=== PATIENT | male | born 1985 | race Caucasian/White ===

== ENCOUNTER → 2019-07-30 10:45 | Outpatient (CLI) | payer OTHER, SELFPAY ==
--- NOTE | 2019-07-30 11:01 | XR_ITS ---
PROCEDURE: XR SHOULDER RT MIN 2V CLINICAL INDICATION: ROTATOR CUFF SYNDROME Right shoulder pain COMPARISON: No exams were available for comparison FINDINGS: No fracture or dislocation. No lytic or blastic change. There is mild subacromial. No significant degenerative change. IMPRESSION: Mild subacromial stenosis which may result in rotator issues which may be better evaluated with MRI if clinically warranted. Dictated by: David Kirk MD 07/30/2019 11:28 Electronically signed by David Kirk MD in [place] 07/30/2019 11:28
== END ==
PROVIDERS: PCP Family Medicine; Visit Provider Family Medicine
DX: M25.511 Pain in right shoulder (principal)
CPT/HCPCS: 73030

== ENCOUNTER → 2019-08-08 09:26 | Outpatient (CLI) | payer BC, OTHER, SELFPAY ==
--- NOTE | 2019-08-08 09:33 | XR_ITS ---
PROCEDURE: XR SHOULDER LT MIN 2V CLINICAL INDICATION: LT SHOULDER PAIN COMPARISON: No exams were available for comparison FINDINGS: The clavicle is intact and the AC joint appears normal. There is a slightly lateral downsloping acromion process. The humeral head rides slightly high in the glenoid and the combination suggests a possible predisposition to impingement syndrome. There are no soft tissue calcifications. IMPRESSION: Possible mild impingement syndrome, no other abnormality noted Dictated by: Dr. Azam Pierre MD 08/08/2019 09:[address] Azam Pierre MD in [place] 08/08/2019 09:56
== END ==
PROVIDERS: PCP Family Medicine; Visit Provider Family Medicine
DX: M25.512 Pain in left shoulder (principal)
CPT/HCPCS: 73030

== ENCOUNTER → 2019-09-12 15:26 | Outpatient (CLI) | payer OTHER, SELFPAY ==
[2019-09-12 18:52] LABS: Chol/HDL Ratio 3.2 (1-3.5); Cholesterol 132 mg/dl (140-200); HDL Cholesterol 41 mg/dl (40-60); Triglycerides 159 mg/dl (30-150); VLDL Cholesterol 32 mg/dL (0-40)
[2019-09-12 19:02] LABS: Direct LDL Cholesterol 61.94 mg/dL (100-129); Valproic Acid, (Depakene) 33.3 ug/ml (50-100)
[2019-09-12 19:23] LABS: Thyroid Stimulating Hormone 1.66 uIU/mL (0.465-4.68)
== END ==
PROVIDERS: Visit Provider Psychiatry & Neurology Psychiatry
DX: F31.81 Bipolar II disorder (principal)
CPT/HCPCS: 36415; 80061; 80164; 83036; 84443

== ENCOUNTER 2019-10-10 11:00 | Outpatient (RCR) | payer OTHER, SELFPAY | END 2019-10-10 12:00 | disposition home or self-care (01) | LOC: OT 11:00 | PROVIDERS: PCP Family Medicine; Visit Provider Family Medicine | DX: M75.101 Unspecified rotator cuff tear or rupture of right shoulder, not specified as traumatic; M75.21 Bicipital tendinitis, right shoulder | CPT/HCPCS: 97014; 97033; 97035; 97110; 97164; 97165; 97530; G0283 ==

== ENCOUNTER → 2019-12-03 11:17 | Outpatient (CLI) | payer OTHER, SELFPAY ==
--- NOTE | 2019-12-03 | XR_ITS ---
PROCEDURE: XR ORBIT BILATERAL MIN 4V CLINICAL INDICATION: Evaluate for foreign body COMPARISON: No exams were available for comparison TECHNIQUE: AP views are obtained of the orbits with the patient looking up and down. FINDINGS: No radio opaque foreign bodies evident. There is mild mucosal thickening of the left maxillary sinus IMPRESSION: There is mild mucosal thickening of the left maxillary sinus. No radio opaque orbital foreign body identified. Dictated by: David Kirk MD 12/03/2019 13:59 David Kirk MD in [place] 12/03/2019 13:59
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
== END ==
PROVIDERS: PCP Family Medicine; Visit Provider Orthopaedic Surgery
DX: M75.41 Impingement syndrome of right shoulder (principal); H05.53 Retained (old) foreign body following penetrating wound of bilateral orbits
CPT/HCPCS: 70200; 73221

== ENCOUNTER 2020-01-09 10:25 | Outpatient (RCR) | payer OTHER, SELFPAY | END 2020-01-09 11:00 | disposition home or self-care (01) | LOC: OT 10:25 | PROVIDERS: Visit Provider Orthopaedic Surgery | DX: G56.03 Carpal tunnel syndrome, bilateral upper limbs (principal) | CPT/HCPCS: 97763 ==

== ENCOUNTER 2020-01-29 11:00 | Outpatient (RCR) | payer OTHER, SELFPAY ==
--- NOTE | 2020-01-19 08:54 | HMH.OTOPEV ---
OT Inpatient Evaluation Rehab OT Outpatient Eval Start: 01/19/20 08:39 Freq: Status: Active Protocol: Document 01/19/20 08:39 JESSIKAPRICILLA (Rec: 01/19/20 08:54 JAYNELIZZY [id number]) Electronically Signed By Eliane Reardon OT 01/19/20 08:39 Outpatient Therapy Subjective History Subjective History 34 year old male referred to OP OT skilled services for R shoulder pain, rotator cuff tendinopathy. Patient previously recieved skilled OP OT servcies from 08/08/19-10/09 with 15 visitis for R shoulder pain. Patient d/c self without completion. Now Patient continues to have pain in R shoulder and recieved MRI on 12/03/19 verifying R shoulder tendinopathy/ tendinosis. Patient recieved cortisone shot in R shoulder on 12/03/19. Chief Complaint Pain Symptom Type Ache Symptoms Relieved By Ice Symptoms Aggravated By Physical Activity,Lifting Prior Functional Limitations Lifting Current Functional Limitations Reaching,Lifting Symptom Description Intermittent Level of pain today (0-10) 0 Pain scale - at its best (0-10) 5 Pain scale - at its worst (0-10) 5 Shoulder/Elbow Eval Shoulder Objective Measurements Shoulder ROM Right Shoulder Abduction Active Range of 125 Motion (degrees) Shoulder Flexion Active Range of Motion 160 (degrees) Query Text: Shoulder External Rotation Active Range 50 of Motion (degrees) Shoulder Internal Rotation Active Range 60 of Motion (degrees) pain with active ROM shoulder exam right standard Shoulder MMT Shoulder Abduction Strength Grade 3+ Fair+ Shoulder Flexion Strength Grade 3+ Fair+ Shoulder Horizontal Abduction Strength 3+ Fair+ Grade Shoulder Horizontal Adduction Strength 3+ Fair+ Grade Infraspinatus/Teres Minor Strength Grade 3+ Fair+ Shoulder External Rotation Strength 3+ Fair+ Grade Shoulder Internal Rotation Strength 3+ Fair+ Grade Elbow Objective Measurements OT Outpatient Assessment Impairments Problems/Impairments Impaired Range of Motion, Impaired Strength,Impaired Endurance,Impaired Lifting, Subjective C/O Pain Pr
== END 2020-01-29 11:05 | disposition home or self-care (01) ==
LOC: OT 11:00
PROVIDERS: PCP Family Medicine; Visit Provider Orthopaedic Surgery
DX: M25.511 Pain in right shoulder; M67.911 Unspecified disorder of synovium and tendon, right shoulder; M75.51 Bursitis of right shoulder; M75.41 Impingement syndrome of right shoulder; M75.21 Bicipital tendinitis, right shoulder
CPT/HCPCS: 97165

== ENCOUNTER → 2020-07-01 09:56 | Outpatient (CLI) | payer OTHER, SELFPAY ==
[2020-07-01 10:39] LABS: Basophils # 0.1 K/mm3 (0-0.2); Eosinophils # 0.2 K/mm3 (0.0-0.4); Eosinophils % 2.1 % (0.1-12.0); Hematocrit 47.5 % (42.0-52.0); Hemoglobin 15.5 g/dL (14.1-18.0); Lymphocytes # 2.3 K/mm3 (0.7-4.5); Lymphocytes % 31.4 % (10-50); Mean Corpuscular HGB Conc 32.6 g/dL (31.8-35.4); Mean Corpuscular Hemoglobin 26.8 pg (27.0-31.2); Mean Corpuscular Volume 82.3 fl (80-94); Mean Platelet Volume 7.8 fl (7.4-10.4); Monocytes # 0.8 K/mm3 (0.1-1.0); Monocytes % 10.3 % (1.7-9.3); Neutrophils % 55.2 % (37.0-80.0); Platelet Count 359 K/mm3 (142-424); Red Blood Count 5.77 M/mm3 (4.60-6.20); Red Cell Distribution Width 13.2 % (11.5-17.5); White Blood Count 7.3 K/mm3 (4.8-10.8)
[2020-07-01 10:56] LABS: Hemoglobin A1C 5.9 % (4.0-6.0)
[2020-07-01 11:06] LABS: Alanine Aminotransferase 105 U/L (12-78); Albumin Level 4.5 g/dl (3.5-5.0); Albumin/Globulin Ratio 1.6 (1.1-1.8); Alkaline Phosphatase 71 U/L (38-126); Anion Gap 12.4 mEq/L (5-15); Aspartate Amino Transferase 52 U/L (17-59); Bilirubin,Total 0.7 mg/dl (0.2-1.3); Blood Urea Nitrogen 14 mg/dl (9-20); Calcium 10.4 mg/dl (8.4-10.2); Carbon Dioxide 23 mmol/L (22.0-30.0); Chloride 107 mmol/L (98-107); Chol/HDL Ratio 4.3 (1-3.5); Cholesterol 167 mg/dl (140-200); Estimated Glomerular Filt Rate 76 ml/min (>60); GFR (African American) 92 ML/MIN (>60); Globulin 2.9 g/dL (1.3-3.2); Glucose 116 mg/dl (74-100); HDL Cholesterol 39 mg/dl (40-60); Potassium 4.4 mmoL/L (3.5-5.1); Sodium 138 mmol/L (136-145); Total Protein,Serum 7.4 g/dl (6.3-8.2); Triglycerides 193 mg/dl (30-150); VLDL Cholesterol 39 mg/dL (0-40)
[2020-07-01 11:17] LABS: Direct LDL Cholesterol 85.25 mg/dL (100-129)
[2020-07-01 11:36] LABS: Thyroid Stimulating Hormone 1.68 uIU/mL (0.465-4.68)
[2020-07-07 10:08] LABS: Free Valproic Acid (Depakote) 13.3
== END ==
PROVIDERS: Visit Provider Psychiatry & Neurology Psychiatry
DX: F31.81 Bipolar II disorder (principal)
CPT/HCPCS: 36415; 80053; 80061; 80165; 83036; 84443; 85025

== ENCOUNTER → 2020-10-14 10:03 | Outpatient (CLI) | payer OTHER, SELFPAY | PROVIDERS: PCP Family Medicine; Visit Provider Nurse Practitioner Psychiatric/Mental Health | DX: Z20.822 Contact with and (suspected) exposure to COVID-19 (principal) | CPT/HCPCS: U0003 ==

== ENCOUNTER 2020-10-16 18:28 | Emergency (ER) | payer OTHER, SELFPAY ==
[2020-10-16 18:28] VITALS: BP 146/103; PULSE 99; RESP 22; TEMP 36.7; O2SAT 94; BMI 39.0
--- NOTE | 2020-10-16 19:51 | XR_ITS ---
PROCEDURE INFORMATION: Exam: XR Chest Exam date and time: 10/16/2020 7:51 PM Age: 35 years old Clinical indication: Shortness of breath; Patient HX: SOB; Additional info: SOA TECHNIQUE: Imaging protocol: XR of the chest. Views: 1 view. COMPARISON: SHOULDER RT WO CON 12/03/2019 11:45 AM FINDINGS: Lungs: Unremarkable. No consolidation. Pleural spaces: Unremarkable. No pleural effusion. No pneumothorax. Heart/Mediastinum: Unremarkable. No cardiomegaly. Bones/joints: Unremarkable. IMPRESSION: No acute findings.
--- NOTE | 2020-10-16 20:37 | HMH.EDGENADL ---
ED Disposition Clinical Impression: Upper respiratory infection Qualifiers: URI type: unspecified viral URI Qualified Code(s): J06.9 - Acute upper respiratory infection, unspecified Disposition: Home, Self-Care Condition on Discharge: Fair Instructions: DI for Viral Upper Respiratory Infection -- Adult Referrals: Abel Guardado MD [Primary Care Provider] - - Critical Care Critical Care Time: No Attestation: On 10/16/20, the high probability of a clinically significant, sudden or life threatening deterioration of the following system(s) required my full and direct attention, intervention and personal management. The time I documented below is in addition to time spent performing reported procedures but includes the following listed in this critical care notation. Medical Decision Making - Salazar Inquiry Pt receiving controlled substance: No Vital Signs: 10/16/20 18:28 10/16/20 20:54 Temperature 98.1 F 98.3 F Temperature Source Oral Oral Pulse Rate 98 H Pulse Rate [Radial] 99 H Respiratory Rate 22 20 Blood Pressure 148/99 H Blood Pressure [Right Arm] 146/103 H Blood Pressure Mean [Right Arm] 117 Blood Pressure Source Automatic Cuff Blood Pressure Position Sitting 02 Sat by Pulse Oximetry 94 L Oxygen Delivery Method Room Air Room Air Medical Decision Narrative: 35-year-old male presenting to the emergency department with upper respiratory symptoms. Differential diagnosis includes COVID-19, RSV, pneumonia other URI among others. Given this plan to order chest x-ray. Patient son has RSV is high suspicion for this being the etiology. Hemodynamically stable while here in the emergency department, had minimal coughing on exam, saturating well on room air without any respiratory distress. Due to patient concern, chest x-ray was ordered and showed no acute consolidation. Discussed with patient as well as necessity to take acetaminophen and Motrin, and it will take some time to fully recover from this. Return precautions. General Adult HPI - General Chief complaint: Upper Respiratory Infection Stated complaint: resp issues Time Seen by Provider: 10/16/20 19:00 Mode of Arrival: Ambulatory Limitations: No Limitations Description of Symptoms (Recalled from ER Triage Doc. by RN): TO ED PER [employer] CAR WITH C/O URI, COUGH, X 6 DAYS SEEN BY PCP GIVEN STEROIDS FINISHED COURSE WITH NO IMPROVEMENT IN SYMPTOMS. - History of Present Illness HPI narrative: 5-year-old male presenting with a chief complaint of cough. Patient has had 6 days of cough, states that sometimes he coughs so hard that his back hurts. He has also had a runny nose. Denying any nausea, vomiting, has had episodes of diarrhea 4-5 a day small amounts of runny diarrhea. He still able to eat and drink, has had normal urinations, has not had significant fevers although he has felt subjective chills and diaphoresis. His son just tested positive for RSV. Patient is also given a course of azithromycin as well as a course of steroids. He is finished his course of azithromycin and steroids and is not taking anything [id number] for pain. - Related Data Home Medications Medication Instructions Recorded Confirmed propranolol 10 mg tablet 10 mg PO BID 11/26/19 01/09/20 topiramate 100 mg tablet 100 mg PO DAILY 11/26/19 01/09/20 Previous Rx's Medication Instructions Recorded cariprazine 1.5 mg capsule 1.5 mg PO DAILY #30 cap 10/14/20 Allergies Allergy/AdvReac Type Severity Reaction Status Date / Time iodine Allergy Verified 10/14/20 09:01 CODEINE Allergy Unknown I-RASH Uncoded 10/14/20 09:01 [facility] History - Hepatitis A Screen Drug use history?: No High risk sexual behaviors?: No History of sexually transmitted infection?: No Currently employed?: No Childcare worker?: No Do you have indoor plumbing?: Yes Do you have electricity?: Yes Attestation statement:: This patient has been screened for Hepatitis A risk factors.
[2020-10-16 20:54] VITALS: BP 148/99; PULSE 98; RESP 20; TEMP 36.8; O2SAT 96
== END 2020-10-16 20:54 | disposition home or self-care (01) ==
PROVIDERS: Emergency Provider Emergency Medicine; PCP Family Medicine
DX: J06.9 Acute upper respiratory infection, unspecified (principal); Z87.891 Personal history of nicotine dependence
CPT/HCPCS: 71045; 99282

== ENCOUNTER 2020-12-11 12:14 | Emergency (ER) | payer OTHER, SELFPAY ==
[2020-12-11 13:09] VITALS: BP 126/85; PULSE 90; RESP 21; TEMP 36.3; O2SAT 95; BMI 39.3
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
[2020-12-11 14:05] VITALS: BP 120/87; PULSE 85; RESP 18; TEMP 36.8; O2SAT 98
[2020-12-11 19:03] LABS: UTC Strep Screen (Rapid) Negative (Negative)
[2020-12-11 19:04] LABS: UTC Influenza A Antigen Negative (Negative); UTC Influenza B Antigen Negative (Negative)
== END 2020-12-11 14:06 | disposition home or self-care (01) ==
PROVIDERS: Emergency Provider Nurse Practitioner Family; PCP Family Medicine
DX: H66.002 Acute suppurative otitis media without spontaneous rupture of ear drum, left ear (principal); J01.90 Acute sinusitis, unspecified; Z87.891 Personal history of nicotine dependence
CPT/HCPCS: 87804; 87880; 99203; G0463

== ENCOUNTER 2021-03-03 15:45 | Emergency (ER) | payer OTHER, SELFPAY ==
[2021-03-03 15:50] VITALS: BP 145/82; PULSE 64; RESP 21; TEMP 36.7; O2SAT 98; BMI 35.2
--- NOTE | 2021-03-03 16:05 | HMH.EDUTC ---
[facility] [place] Disposition Clinical Impression: Sinusitis Qualifiers: Sinusitis location: unspecified location Chronicity: unspecified Qualified Code(s): J32.9 - Chronic sinusitis, unspecified Disposition: Home, Self-Care Condition on Discharge: Good Instructions: Sinusitis, DI for Sinusitis, DI for Fever (Symptom) -- Adult Additional Instructions: *Monitor Temp, Over the counter Motrin or Tylenol as directed/as needed Tylenol every 4 hours and Motrin every 6 hours (as long as your family doctor has told you that you can take it) for fever or pain. and straight to ER if unable to lower temp less than 101.0 after medication given *Warm salt water gargles may help to soothe the throat *Throat Lozenges *Warm fluids like tea with honey may help to soothe the throat *Sleep elevated *Humidifier/Vaporizer *Flonase 2 sprays in each nostril daily but be aware that it may take 2-3 days before you notice improvement *Bromfed may cause drowsiness. Know how it effects you (your child) before driving, caring for small child, or sending your child to school. Not other antihistamines/allergy medications while taking bromfed Your throat swab was sent for culture. Those results are typically sent to your primary care. Be sure to follow up in 2-3 days with your family doctor/primary care physician if no improvement so they can review those result and treat if necessary. If you don?t have a primary care doctor, I recommend you get one but in the mean time, you will have to return to a walk in clinic Follow up IMMEDIATELY for new or worsening symptoms or no Noticeable improvement over the next 48-72 hours. 911 for difficulty breathing or swallowing You were tested for today for COVID19 your test result should be back in the next 24-48 hours, you may check your results on the [facility] My Health Portal if you have trouble logging on you can call support or you will get a call if your results are Positive You was given a handout with instructions for Self Quarantine and Self isolation for while you wait on test results and what to do if they are positive If you are positive the Health Dept will be contacting you also Make sure to take your Vitamins Vit. C Vit D and Zinc if you can take them Prescriptions: Benzonatate [Benzonatate 100mg cap] 100 mg PO Q8HP PRN #15 cap PRN Reason: Cough Transmission Status: Pending to [facility] methylPREDNISolone [Medrol 4mg tab] 4 mg PO DIRECTED #21 tab Transmission Status: Pending to [facility] Azithromycin [Z-Abraham 250mg Tab] 250 mg PO DIRECTED #6 tab Transmission Status: Pending to [facility] Referrals: Abel Guardado MD [Primary Care Provider] - As needed Forms: Work/School Release Time of Disposition: 16:18 Medical Decision Making - Salazar Inquiry Pt receiving controlled substance: No Salazar was queried for this patient: No Vital Signs: 03/03/21 15:50 Temperature 98.1 F Temperature Source Oral Pulse Rate [Right Brachial] 64 Respiratory Rate 21 Blood Pressure [Right Arm] 145/82 H Blood Pressure Mean [Right Arm] 103 Blood Pressure Source [Right Arm] Automatic Cuff Blood Pressure Position [Right Arm] Sitting 02 Sat by Pulse Oximetry 98 Oxygen Delivery Method Room Air - Lab Data Lab results reviewed: Yes: I reviewed the patient's lab results. Lab Results 03/03/21 16:01: Strep Scn Rapid Clinic Negative Orders (Tests/Meds): ORDERS Category Date Time Status Full Resp Panel w/COVID ([facility]) Routine Lab 03/03/21 15:40 Received Strep Screen Confirmation Stat Micro 03/03/21 16:01 Received [facility] UTC HPI - General Stated complaint: muscle aches sweats,nausa,ELISE Time Seen by Provider: 03/03/21 16:05 Mode of Arrival: Ambulatory Source of Information: Patient Limitations: No Limitations Description of Symptoms (Recalled from Triage Doc. by RN): PATIENT C/O FEVER, CHILLS, BODY ACHES, SINUS PRESSURE, AND CONGESTION X 1 WEEK HEENT Symptoms
[2021-03-03 16:14] LABS: Adenovirus,PCR Not Detected (NotDetected); Bordetella Pertussis Not Detected (NotDetected); Chlamydophila Pneumoniae, PCR Not Detected (NotDetected); Coronavirus 19, PCR Not Detected (NotDetected); Coronavirus 229E Not Detected (NotDetected); Coronavirus NL63 Not Detected (NotDetected); Coronavirus OC43 Not Detected (NotDetected); Coronovirus HKU1,PCR Not Detected (NotDetected); Human Metapneumovirus Not Detected (NotDetected); Influenza A, PCR Not Detected (NotDetected); Influenza AH1, 2009 Not Detected (NotDetected); Influenza AH1, PCR Not Detected (NotDetected); Influenza AH3,PCR Not Detected (NotDetected); Influenza B, PCR Not Detected (NotDetected); Mycoplasma Pneumoniae, PCR Not Detected (NotDetected); Parainfluenza 1, PCR Not Detected (NotDetected); Parainfluenza 2, PCR Not Detected (NotDetected); Parainfluenza 3, PCR Not Detected (NotDetected); Parainfluenza 4, PCR Not Detected (NotDetected); Respiratory Syncytial Virus Not Detected (NotDetected); Rhinovirus/Enterovirus Not Detected (NotDetected)
[2021-03-03 16:15] LABS: UTC Influenza A Antigen Negative (Negative); UTC Influenza B Antigen Negative (Negative); UTC Strep Screen (Rapid) Negative (Negative)
[2021-03-03 16:20] VITALS: BP 145/82; PULSE 64; RESP 21; TEMP 36.7; O2SAT 98
== END 2021-03-03 16:28 | disposition home or self-care (01) ==
PROVIDERS: Emergency Provider Nurse Practitioner; PCP Family Medicine
DX: J32.9 Chronic sinusitis, unspecified (principal)
CPT/HCPCS: 87581; 87632; 87798; 87804; 87880; 99203; C9803; G0463; U0003; U0005

== ENCOUNTER 2021-04-29 14:14 | Emergency (ER) | payer MEDICARE, OTHER, SELFPAY ==
[2021-04-29 14:20] VITALS: BP 105/80; PULSE 94; RESP 20; TEMP 36.8; O2SAT 96; BMI 36.2
--- NOTE | 2021-04-29 14:20 | XR_ITS ---
FINAL REPORT CLINICAL HISTORY: injury. smashed top of 5th digit. bruising. FINDINGS: RIGHT HAND: 3 views of the right hand were obtained. There is a comminuted nondisplaced tuft fracture of the 5th distal phalanx. Visualized joint spaces are normally aligned. Soft tissues are unremarkable. IMPRESSION: Comminuted nondisplaced tuft fracture of the 5th distal phalanx. Reviewed, Interpreted and Dictated by Marty Gutierrez III, MD Transcribed by Roro Tate Authenticated by Marty Gutierrez III, MD on 04/29/2021 03:31:58 PM [facility]
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
[2021-04-29 15:30] VITALS: BP 105/80; PULSE 94; RESP 20; TEMP 36.8; O2SAT 96
== END 2021-04-29 15:35 | disposition home or self-care (01) ==
PROVIDERS: Emergency Provider Nurse Practitioner; PCP Family Medicine
DX: S62.666A Nondisplaced fracture of distal phalanx of right little finger, initial encounter for closed fracture (principal); W22.8XXA Striking against or struck by other objects, initial encounter; S61.306A Unspecified open wound of right little finger with damage to nail, initial encounter
CPT/HCPCS: 11740; 73130; 99213; G0463

== ENCOUNTER 2021-07-02 14:58 | Emergency (ER) | payer MEDICARE, OTHER, SELFPAY ==
[2021-07-02 15:35] VITALS: BP 136/89; PULSE 78; RESP 19; TEMP 36.7; O2SAT 98; BMI 39.7
--- NOTE | 2021-07-02 16:03 | XR_ITS ---
PROCEDURE INFORMATION: Exam: XR Left Foot Exam date and time: 07/02/2021 4:01 PM Age: 35 years old Clinical indication: Pain; Foot; Left; Additional info: Pain of bottom of foot at base of toes, no injury TECHNIQUE: Imaging protocol: XR Left foot. Views: 3 or more views. COMPARISON: No relevant prior studies available. FINDINGS: Bones/joints: There is no evidence of acute fracture. There is no evidence of joint malalignment or dislocation. Soft tissues: No focal soft tissue swelling. IMPRESSION: 1. No evidence of acute fracture. 2. No evidence of acute dislocation.
--- NOTE | 2021-07-02 16:03 | HMH.EDUTC ---
[place] Disposition Clinical Impression: Left foot pain Disposition: Home, Self-Care Condition on Discharge: Good Instructions: DI for Foot Pain Additional Instructions: Rest the extremity, Elevate the extremity as tolerated while you are resting. Take the steroids as directed. Take ibuprofen for pain. Follow up with Dr. Mccarthy (podiatry). I put in a referral but you need to call her office and schedule an appointment. Follow up with your regular doctor. GO TO THE ER FOR ANY WORSENING SYMPTOMS Prescriptions: methylPREDNISolone [Medrol] 4 mg PO DIRECTED 6 Days #21 packet Transmission Status: Received by [id number] Referrals: Brittney Pena APRN [Primary Care Provider] - Meena Mccarthy DPM [Staff Physician] - Time of Disposition: 16:41 Medical Decision Making - Medical Records Medical records reviewed: No: I reviewed the patient's medical records. - Salazar Inquiry Pt receiving controlled substance: No Vital Signs: 07/02/21 15:35 07/02/21 16:55 Temperature 98.1 F 98.1 F Temperature Source Oral Pulse Rate 78 Pulse Rate [Right Brachial] 78 Respiratory Rate 19 19 Blood Pressure 136/89 Blood Pressure [Right Arm] 136/89 Blood Pressure Mean [Right Arm] 104 Blood Pressure Source [Right Arm] Automatic Cuff Blood Pressure Position [Right Arm] Sitting 02 Sat by Pulse Oximetry 98 Oxygen Delivery Method Room Air Orders (Tests/Meds): ED MEDICATIONS Discontinued Medications Generic Name Dose Route Start Last Admin Trade Name Nickq PRN Reason Stop Dose Admin Ketorolac Tromethamine 60 mg 07/02/21 16:43 07/02/21 16:50 Ketorolac 60mg/2ml Vial IM 07/02/21 16:44 60 mg ONCE ONE Administration Methylprednisolone Sodium Succinate 125 mg 07/02/21 16:43 07/02/21 16:50 Methylprednisolone Sod Succ 125mg Vial IM 07/02/21 16:44 125 mg ONCE ONE Administration [place] HPI - General Stated complaint: left foot pain Time Seen by Provider: 07/02/21 16:07 Mode of Arrival: Ambulatory Source of Information: Patient Limitations: No Limitations Description of Symptoms (Recalled from Triage Doc. by RN): PATIENT C/O SWELLING TO BOTTOM OF LEFT FOOT X 2 WEEKS HEENT Symptoms (Recalled from RN notes): No Resp Symptoms (Recalled from RN notes): No Skin Symptoms (Recalled from RN notes): No MS Symptoms (Recalled from RN notes): Yes Functional Status (Recalled from RN notes): WNL - History of Present Illness Provider Complaint: He c/o left foot pain for the past 1 week. He denies any known injury. He does have a history of gout, but its been a long time since he had a problem with it and it has never hurt in this spot. - Related Data Previous Rx's Medication Instructions Recorded buspirone 5 mg tablet 5 mg PO TID #90 tab 05/09/21 methylPREDNISolone [Medrol] 4 mg PO DIRECTED 6 Days #21 07/02/21 packet Allergies Allergy/AdvReac Type Severity Reaction Status Date / Time codeine Allergy Verified 05/06/21 11:19 iodine Allergy Verified 05/06/21 11:19 - Worker's Comp Is this a Worker's Comp case?: No [facility] History - Hepatitis A Screen Attestation statement:: This patient has been screened for Hepatitis A risk factors. I have reviewed the patient's past medical history: Yes Medical History: Reports:: Anxiety, Migraine, Seizures Other Medical History: Reports: Arthritis Comment: Bipolar, PTSD Other Surgeries: Yes: No Previous Surgery - Social History Smoking Status: Former smoker Alcohol Intake: never Substance Use Type: former substance user, methamphetamine Occupational Status: other Housing: house Comment: states that he has been clean now for about 5 years - Psychiatric History Pschychiatric History:: Reports:: Anxiety Family Hx:: No significant family history ROS Obtained: Yes All systems reviewed & no additional complaints - Constitutional Constitutional: Denies chills, Denies fever(s) - Eyes Eyes: Denies eye discharge
[2021-07-02 16:55] VITALS: BP 136/89; PULSE 78; RESP 19; TEMP 36.7; O2SAT 98
== END 2021-07-02 17:00 | disposition home or self-care (01) ==
LOC: UTC 15:01
PROVIDERS: Emergency Provider Nurse Practitioner Family; PCP Nurse Practitioner Family
DX: M79.672 Pain in left foot (principal); F41.9 Anxiety disorder, unspecified; Z87.891 Personal history of nicotine dependence
CPT/HCPCS: 73630; 96372; 99212; G0463

== ENCOUNTER 2021-08-12 14:24 | Emergency (ER) | payer MEDICARE, OTHER, SELFPAY ==
[2021-08-12 14:35] VITALS: BP 131/77; PULSE 80; RESP 19; TEMP 37; O2SAT 97; BMI 37.4
--- NOTE | 2021-08-12 14:56 | HMH.EDUTC ---
[facility] [place] Disposition Clinical Impression: Sinusitis Qualifiers: Sinusitis location: unspecified location Chronicity: unspecified Qualified Code(s): J32.9 - Chronic sinusitis, unspecified Disposition: Home, Self-Care Condition on Discharge: Good Instructions: Sinusitis, DI for Sinusitis Additional Instructions: *Monitor Temp, Over the counter Motrin or Tylenol as directed/as needed Tylenol every 4 hours and Motrin every 6 hours (as long as your family doctor has told you that you can take it) for fever or pain. and straight to ER if unable to lower temp less than 101.0 after medication given *Warm salt water gargles may help to soothe the throat *Throat Lozenges *Warm fluids like tea with honey may help to soothe the throat *Sleep elevated *Humidifier/Vaporizer Make sure to gargle warm salt water Follow up with your Family Doctor as discussed Follow up IMMEDIATELY for new or worsening symptoms or no Noticeable improvement over the next 48-72 hours. 911 for difficulty breathing or swallowing Prescriptions: Amoxicillin/Potassium Clav [Amox-Clav 875-125 mg Tablet] 1 tab PO BID #14 tab Transmission Status: Pending to [facility] Referrals: Mick Yang MD [Primary Care Provider] - As needed Time of Disposition: 15:05 Medical Decision Making - Salazar Inquiry Pt receiving controlled substance: No Salazar was queried for this patient: No Vital Signs: 08/12/21 14:35 Temperature 98.6 F Temperature Source Oral Pulse Rate [Right Brachial] 80 Respiratory Rate 19 Blood Pressure [Right Arm] 131/77 Blood Pressure Mean [Right Arm] 95 Blood Pressure Source [Right Arm] Automatic Cuff Blood Pressure Position [Right Arm] Sitting 02 Sat by Pulse Oximetry 97 Oxygen Delivery Method Room Air [facility] [place] HPI - General Stated complaint: metal taste, dry mouth Time Seen by Provider: 08/12/21 14:56 Mode of Arrival: Ambulatory Source of Information: Patient Limitations: No Limitations Description of Symptoms (Recalled from Triage Doc. by RN): PATIENT C/O METAL TASTE IN MOUTH X 1 MONTH HEENT Symptoms (Recalled from RN notes): Yes Resp Symptoms (Recalled from RN notes): No Skin Symptoms (Recalled from RN notes): No MS Symptoms (Recalled from RN notes): No Functional Status (Recalled from RN notes): WNL - History of Present Illness Provider Complaint: Patient statse that he has been having a bad taste in his mouth on and off for about a month States that he does have a several bad teeth and has made appointment with Dentist States that he has also had sinus congestion and drainage and that may be causing it too but today he wanted to come in and get checked out - Related Data Previous Rx's Medication Instructions Recorded buspirone 5 mg tablet 5 mg PO TID #90 tab 05/09/21 Amoxicillin/Potassium Clav 1 tab PO BID #14 tab 08/12/21 [Amox-Clav 875-125 mg Tablet] Allergies Allergy/AdvReac Type Severity Reaction Status Date / Time codeine Allergy Verified 05/06/21 11:19 iodine Allergy Verified 05/06/21 11:19 - Worker's Comp Is this a Worker's Comp case?: No [facility] History - Hepatitis A Screen Attestation statement:: This patient has been screened for Hepatitis A risk factors. 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
[2021-08-12 15:11] VITALS: BP 131/77; PULSE 80; RESP 19; TEMP 37; O2SAT 97
== END 2021-08-12 15:14 | disposition home or self-care (01) ==
PROVIDERS: Emergency Provider Emergency Medicine; PCP Family Medicine
DX: J32.9 Chronic sinusitis, unspecified (principal)
CPT/HCPCS: 99212; G0463

== ENCOUNTER 2021-08-30 09:48 | Emergency (ER) | payer MEDICARE, OTHER, SELFPAY ==
--- NOTE | 2021-08-30 09:46 | ECG_ITS ---
APPROVED REPORT Exam: Resting ECG HR:71 bpm ECG Measurements Heart Rate 71 AXES PA 128 P 48 QRSd 106 QRS 3 QT 350 T 40 QTc 372 Conclusion SINUS RHYTHM LOW QRS VOLTAGE IN PRECORDIAL LEADS [QRS DEFLECTION < 1.0 mV IN CHEST LEADS] BORDERLINE ECG UNCONFIRMED REPORT Electronically signed by : Abel Rueda MD 08/31/2021 17:58:27
[2021-08-30 09:49] VITALS: BP 116/75; PULSE 79; RESP 13; TEMP 36.9; O2SAT 98; BMI 34.8
--- NOTE | 2021-08-30 09:54 | PC.NURSE ---
MD at bedside assessing pt and informing of POC
--- NOTE | 2021-08-30 09:54 | PC.NURSE ---
HAYDEN BOWDEN at
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
--- NOTE | 2021-08-30 09:55 | PC.NURSE ---
pt ambulatory back to ED room 7 from waiting area with policy change clerk. [place], Tube And Manifold Builder; Rosa To RN; RADHA Travis and FELA Schultz hooking patient to monitor, performing EKG, starting an IV and triaging patient. He has no other needs at this time and his family is in the waiting room.
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
[2021-08-30 10:02] LABS: Basophils # 0.2 K/mm3 (0-0.2); Basophils % 2.3 % (0.1-2.0); Eosinophils # 0.3 K/mm3 (0.0-0.4); Eosinophils % 3.4 % (0.1-12.0); Hematocrit 50.9 % (42.0-52.0); Lymphocytes # 1.9 K/mm3 (0.7-4.5); Lymphocytes % 24.5 % (10-50); Mean Corpuscular HGB Conc 31.5 g/dL (31.8-35.4); Mean Corpuscular Volume 85.8 fl (80-94); Mean Platelet Volume 7.6 fl (7.4-10.4); Monocytes # 0.9 K/mm3 (0.1-1.0); Monocytes % 10.8 % (1.7-9.3); Neutrophils # 4.7 K/mm3 (1.8-7.8); Neutrophils % 59.1 % (37.0-80.0); Platelet Count 393 K/mm3 (142-424); Red Blood Count 5.93 M/mm3 (4.60-6.20); Red Cell Distribution Width 13.7 % (11.5-17.5); White Blood Count 7.9 K/mm3 (4.8-10.8)
--- NOTE | 2021-08-30 10:05 | PC.NURSE ---
Registration at bedside getting pt information
[2021-08-30 10:08] LABS: Chloride 102 mmol/L (98-107); Potassium 4.3 mmoL/L (3.5-5.1); Sodium 137 mmol/L (136-145)
--- NOTE | 2021-08-30 10:08 | PC.NURSE ---
Pt to rad via w/c
[2021-08-30 10:11] LABS: Alanine Aminotransferase 69 U/L (12-78); Albumin Level 4.3 g/dl (3.5-5.0); Albumin/Globulin Ratio 1.4 (1.1-1.8); Alkaline Phosphatase 79 U/L (38-126); Anion Gap 10.3 mEq/L (5-15); Aspartate Amino Transferase 50 U/L (17-59); Bilirubin,Total 0.5 mg/dl (0.2-1.3); Blood Urea Nitrogen 14 mg/dl (9-20); Carbon Dioxide 29 mmol/L (22.0-30.0); Creatinine Clearance Estimated 180 mL/min (50-200); Estimated Glomerular Filt Rate 95 ml/min (>60); GFR (African American) 115 ML/MIN (>60); Total Protein,Serum 7.3 g/dl (6.3-8.2)
[2021-08-30 10:12] LABS: Calcium 9.6 mg/dl (8.4-10.2); Glucose 125 mg/dl (74-100)
[2021-08-30 10:35] VITALS: BP 118/73; PULSE 81; O2SAT 96
[2021-08-30 10:48] VITALS: BP 118/73; PULSE 71; RESP 16; TEMP 36.7; O2SAT 98
== END 2021-08-30 10:48 | disposition home or self-care (01) ==
PROVIDERS: Emergency Provider Emergency Medicine; PCP Family Medicine
DX: R07.89 Other chest pain (principal); G43.909 Migraine, unspecified, not intractable, without status migrainosus; G40.909 Epilepsy, unspecified, not intractable, without status epilepticus; M19.90 Unspecified osteoarthritis, unspecified site; F41.9 Anxiety disorder, unspecified; Z79.1 Long term (current) use of non-steroidal anti-inflammatories (NSAID); Z79.899 Other long term (current) drug therapy; Z88.5 Allergy status to narcotic agent; Z88.8 Allergy status to other drugs, medicaments and biological substances; Z87.891 Personal history of nicotine dependence
CPT/HCPCS: 71101; 80053; 85025; 93005; 99284

== ENCOUNTER → 2021-08-31 13:53 | Outpatient (CLI) | payer MEDICARE, OTHER, SELFPAY | PROVIDERS: PCP Nurse Practitioner Family; Visit Provider Nurse Practitioner Family | DX: R05.1 Acute cough; R19.7 Diarrhea, unspecified; U07.1 COVID-19 | CPT/HCPCS: C9803; U0003; U0005 ==

== ENCOUNTER 2021-09-07 19:56 | Emergency (ER) | payer MEDICARE, OTHER, SELFPAY ==
[2021-09-07 20:20] VITALS: BP 135/67; PULSE 89; RESP 18; TEMP 36.8; O2SAT 99; BMI 38.0
[2021-09-07 20:33] LABS: Influenza A, PCR Not Detected (NotDetected); Influenza B, PCR Not Detected (NotDetected)
--- NOTE | 2021-09-07 20:35 | XR_ITS ---
PROCEDURE INFORMATION: Exam: XR Chest Exam date and time: 09/07/2021 8:44 PM Age: 36 years old Clinical indication: Cough TECHNIQUE: Imaging protocol: Radiologic exam of the chest. Views: 2 views. COMPARISON: CR XR RIBS RT MIN 3V W CXR1V 08/30/2021 10:02 AM FINDINGS: Airway: Patent Lungs: Unremarkable. No consolidation. Pleural spaces: Unremarkable. No pleural effusion. No pneumothorax. Heart/Mediastinum: Unremarkable. No cardiomegaly. Bones/joints: No acute skeletal abnormality or aggressive osseous lesion. IMPRESSION: No acute findings.
[2021-09-07 20:47] LABS: Basophils # 0.1 K/mm3 (0-0.2); Basophils % 1.7 % (0.1-2.0); Eosinophils # 0.2 K/mm3 (0.0-0.4); Eosinophils % 4.3 % (0.1-12.0); Hematocrit 45.9 % (42.0-52.0); Hemoglobin 15.6 g/dL (14.1-18.0); Lymphocytes # 2.3 K/mm3 (0.7-4.5); Lymphocytes % 40.8 % (10-50); Mean Corpuscular Hemoglobin 27.5 pg (27.0-31.2); Mean Corpuscular Volume 80.9 fl (80-94); Monocytes # 0.6 K/mm3 (0.1-1.0); Monocytes % 11.1 % (1.7-9.3); Neutrophils # 2.4 K/mm3 (1.8-7.8); Neutrophils % 42.1 % (37.0-80.0); Platelet Count 364 K/mm3 (142-424); Red Blood Count 5.67 M/mm3 (4.60-6.20); Red Cell Distribution Width 12.9 % (11.5-17.5); White Blood Count 5.7 K/mm3 (4.8-10.8)
[2021-09-07 20:50] LABS: Alanine Aminotransferase 52 U/L (12-78); Albumin Level 3.8 g/dl (3.5-5.0); Albumin/Globulin Ratio 1.3 (1.1-1.8); Alkaline Phosphatase 84 U/L (38-126); Amylase 81 U/L (30-110); Anion Gap 10.5 mEq/L (5-15); Aspartate Amino Transferase 45 U/L (17-59); Bilirubin,Total < 0.1 mg/dl (0.2-1.3); Blood Urea Nitrogen 15 mg/dl (9-20); Calcium 8.7 mg/dl (8.4-10.2); Carbon Dioxide 35 mmol/L (22.0-30.0); Chloride 99 mmol/L (98-107); Creatinine Clearance Estimated 182 mL/min (50-200); Estimated Glomerular Filt Rate 84 ml/min (>60); GFR (African American) 102 ML/MIN (>60); Glucose 120 mg/dl (74-100); Lipase 69 U/L (23-300); Potassium 4.5 mmoL/L (3.5-5.1); Sodium 140 mmol/L (136-145); Total Protein,Serum 6.8 g/dl (6.3-8.2)
[2021-09-07 20:55] LABS: C-Reactive Protein 3.7 mg/L (0-4)
[2021-09-07 21:00] VITALS: BP 125/80; PULSE 73; O2SAT 94
[2021-09-07 21:10] LABS: Procalcitonin 0.059 ng/mL (0.0-2.0)
[2021-09-07 21:14] LABS: Erythrocyte Sedimentation Rate 3 mm/hr (0-15)
[2021-09-07 21:34] LABS: Coronavirus 19, PCR Detected (NotDetected)
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
[2021-09-07 22:19] VITALS: BP 125/80; PULSE 73; RESP 18; TEMP 36.8; O2SAT 94
== END 2021-09-07 22:20 | disposition home or self-care (01) ==
PROVIDERS: Emergency Provider Emergency Medicine; PCP Family Medicine
DX: U07.1 COVID-19 (principal); Z88.6 Allergy status to analgesic agent; Z88.8 Allergy status to other drugs, medicaments and biological substances
CPT/HCPCS: 71046; 80053; 82150; 83690; 84145; 85025; 85651; 86140; 96365; 96375; 99284; C9803; U0003; U0005

== ENCOUNTER 2021-09-13 11:54 | Emergency (ER) | payer MEDICARE, OTHER, SELFPAY ==
[2021-09-13 12:10] VITALS: BP 135/89; PULSE 89; RESP 16; TEMP 36.7; O2SAT 97; BMI 38.1
--- NOTE | 2021-09-13 12:23 | HMH.EDUTC ---
[facility] [place] Disposition Clinical Impression: Encounter for screening for COVID-19 Disposition: Home, Self-Care Condition on Discharge: Good Instructions: DI for COVID-19 (Suspected or Confirmed ), Preventing the Spread of Coronavirus Discharge Instructions Additional Instructions: Drink plenty of fluids. Take tylenol for pain or fever. Return if you begin to have difficulty breathing. Follow up with your regular doctor. GO TO THE ER FOR ANY WORSENING SYMPTOMS Quarantine until you know the results of your covid-19 test. Notify your school or workplace of your results and follow their instructions regarding return to work/school. Referrals: Mick Yang MD [Primary Care Provider] - Time of Disposition: 12:26 Medical Decision Making - Medical Records Medical records reviewed: No: I reviewed the patient's medical records. - Salazar Inquiry Pt receiving controlled substance: No Vital Signs: 09/13/21 12:10 09/13/21 12:33 Temperature 98.1 F 98.1 F Temperature Source Oral Pulse Rate 89 Pulse Rate [Left] 89 Respiratory Rate 16 16 Blood Pressure 135/89 Blood Pressure [Right Arm] 135/89 Blood Pressure Mean [Right Arm] 104 02 Sat by Pulse Oximetry 97 Orders (Tests/Meds): ORDERS Category Date Time Status Covid-19 Nasal PCR ([facility]) Routine Lab 09/13/21 12:[address] [facility] [place] HPI - General Stated complaint: covid test Time Seen by Provider: 09/13/21 12:23 Mode of Arrival: Ambulatory Source of Information: Patient Limitations: No Limitations Description of Symptoms (Recalled from Triage Doc. by RN): patiet comes in for covid retest. patient tested positive on 09/07. he needs proof of a retest for court HEENT Symptoms (Recalled from RN notes): No Resp Symptoms (Recalled from RN notes): No Skin Symptoms (Recalled from RN notes): No MS Symptoms (Recalled from RN notes): No Functional Status (Recalled from RN notes): n/a - History of Present Illness Provider Complaint: He has had covid-19. He is better now, but he needs a negative test for court to be allowed back in court. He denies any complaints at this time. - Related Data Previous Rx's Medication Instructions Recorded Amoxicillin/Potassium Clav 1 tab PO BID #14 tab 08/12/21 [Amox-Clav 875-125 mg Tablet] Cyclobenzaprine HCl 10 mg PO TIDP PRN #30 tab 08/30/21 [Cyclobenzaprine 10mg Tab*] Ibuprofen [Ibuprofen 600mg 600 mg PO Q8 PRN #30 tab 08/30/21 Tablet] Molnupiravir [Molnupiravir (Eua)] 800 mg PO BID #40 cap 09/07/21 buspirone 5 mg tablet 5 mg PO TID #90 tab 09/12/21 Allergies Allergy/AdvReac Type Severity Reaction Status Date / Time codeine Allergy Verified 09/13/21 12:13 iodine Allergy Verified 09/13/21 12:13 - Worker's Comp Is this a Worker's Comp case?: No [facility] History - Hepatitis A Screen Attestation statement:: This patient has been screened for Hepatitis A risk factors. 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
[2021-09-13 12:33] VITALS: BP 135/89; PULSE 89; RESP 16; TEMP 36.7
== END 2021-09-13 12:33 | disposition home or self-care (01) ==
PROVIDERS: Emergency Provider Nurse Practitioner Family; PCP Family Medicine
DX: U07.1 COVID-19 (principal); G43.909 Migraine, unspecified, not intractable, without status migrainosus; G40.909 Epilepsy, unspecified, not intractable, without status epilepticus; M19.90 Unspecified osteoarthritis, unspecified site; F41.9 Anxiety disorder, unspecified; Z79.1 Long term (current) use of non-steroidal anti-inflammatories (NSAID); Z88.5 Allergy status to narcotic agent; Z88.8 Allergy status to other drugs, medicaments and biological substances
CPT/HCPCS: 99213; C9803; G0463; U0003; U0005

== ENCOUNTER 2021-12-18 09:20 | Emergency (ER) | payer MEDICARE, OTHER, SELFPAY ==
[2021-12-18 09:40] VITALS: BP 166/86; PULSE 88; RESP 22; TEMP 36.8; O2SAT 98; BMI 37.7
--- NOTE | 2021-12-18 10:26 | EXP.UTC ---
Discharge Plan Disposition Patient Disposition: Home, Self-Care Condition: Good Prescriptions Prescriptions: New azithromycin [azithromycin] 250 mg tablet 250 mg PO DIRECTED Qty: 6 0RF Rx Instructions: Take two (2) tablets on day #1, then one (1) tablet day #2 thru #5 fluticasone propionate [fluticasone propionate] 50 mcg/actuation spray,suspension 1 spray intranasal DAILY 7 Days Qty: 9.9 0RF No Action buspirone 10 mg tablet 10 mg PO BID Qty: 60 1RF fluoxetine [Prozac] 20 mg capsule 20 mg PO DAILY Qty: 30 1RF cyclobenzaprine 10 MG tablet 10 mg PO TIDP PRN (Reason: Moderate To Severe Pain) Qty: 30 0RF ibuprofen 600 MG tablet 600 mg PO Q8 PRN (Reason: Moderate To Severe Pain) Qty: 30 0RF Referrals Follow up/Referrals: Mick Yang MD [Primary Care Provider] - See instructions Activity Restrictions/Add. Instructions Additional Instructions/Restrictions: Start antibiotic patient to take as ordered for a full length of time even if you feel better. Sinus infections do not get better overnight. It may take 2-3 days to notice much improvement so be sure to use conservative measures as discussed for symptoms. Flonase 1 spray each nostril daily to help with nasal congestion, sinus and ear pressure/information Increase fluids Humidifier/vaporizer as needed Tylenol and ibuprofen as needed for fever or pain. If symptoms do not improve or get worse return or be seen in the ER Follow-up with primary care this week Clinical Impressions Clinical Impression: Sinusitis Instructions Patient Instructions: DI for Sinusitis, Sinusitis Discharge ED Provider: [facility] [facility] [place] General Stated complaint: Congestion, raspy throat, sneezing, drainage Mode of Arrival: Ambulatory Source of Information: Patient Limitations: No Limitations Time Seen by Provider: 12/18/21 10:28 Description of Symptoms (Recalled from Triage Doc. by RN): PATIENT C/O SCRATCHY THROAT, NASAL CONGESTION, RUNNY NOSE WITH GREEN DRAINAGE X 4 DAYS HEENT Symptoms (Recalled from RN notes): Yes Resp Symptoms (Recalled from RN notes): No Skin Symptoms (Recalled from RN notes): No MS Symptoms (Recalled from RN notes): No Functional Status (Recalled from RN notes): WNL History of Present Illness Provider Complaint: 36 yr old male C/O SCRATCHY THROAT, NASAL CONGESTION, RUNNY NOSE WITH GREEN DRAINAGE X 4 DAYS Related Data Previous Rx's Medication Instructions Recorded cyclobenzaprine 10 mg tablet 10 mg PO TIDP PRN Moderate To 08/30/21 Severe Pain #30 tabs ibuprofen 600 mg tablet 600 mg PO Q8 PRN Moderate To 08/30/21 Severe Pain #30 tabs buspirone 10 mg tablet 10 mg PO BID #60 tabs 11/16/21 fluoxetine 20 mg capsule (Prozac) 20 mg PO DAILY #30 caps 11/16/21 azithromycin 250 mg tablet 250 mg PO DIRECTED #6 tabs 12/18/21 fluticasone propionate 50 1 spray intranasal DAILY 7 days 12/18/21 mcg/actuation nasal #9.9 mL spray,suspension Allergies Allergy/AdvReac Type Severity Reaction Status Date / Time codeine Allergy Verified 11/16/21 11:05 iodine Allergy Verified 11/16/21 11:05 Worker's Comp Is this a Worker's Comp case?: No PFSH PFSH Medical History , [employer]) Major depressive disorder Posttraumatic stress disorder Social History , [employer]) Smoking Status: Former smoker second hand exposure: No alcohol intake: never substance use type: former substance user and methamphetamine current occupational status: other Travel in the last 8 weeks: None housing: house number of children: 1 ROS Obtained: Yes All systems reviewed & no additional complaints except as documented Constitutional Constitutional: Reports system reviewed and no additional complaints, except as documented and Reports as per HPI Eyes Eyes: Reports system reviewed and no additional complaints, except as docume
[2021-12-18 10:32] VITALS: BP 166/86; PULSE 88; RESP 22; TEMP 36.8; O2SAT 98
[2021-12-18 10:35] LABS: UTC Influenza A Antigen Negative (Negative)
[2021-12-18 10:36] LABS: UTC Influenza B Antigen Negative (Negative)
== END 2021-12-18 10:58 | disposition home or self-care (01) ==
PROVIDERS: Emergency Provider Nurse Practitioner Family; PCP Family Medicine
DX: J32.9 Chronic sinusitis, unspecified (principal)
CPT/HCPCS: 87804; 99212; G0463

== ENCOUNTER 2022-01-19 16:50 | Emergency (ER) | payer MEDICARE, OTHER, SELFPAY ==
[2022-01-19 16:52] VITALS: BP 122/65; PULSE 94; RESP 18; TEMP 36.7; O2SAT 98; BMI 37.6
[2022-01-19 17:09] LABS: Coronavirus 19, PCR Not Detected (NotDetected); Influenza B, PCR Not Detected (NotDetected)
--- NOTE | 2022-01-19 17:19 | PC.NURSE ---
DR TRACY AT BEDSIDE
--- NOTE | 2022-01-19 17:30 | HMH.EDGENADL ---
Discharge Plan Disposition Patient Disposition: Home, Self-Care Condition: Good Chief Complaint: Upper Respiratory Infection Prescriptions Prescriptions: No Action buspirone 10 mg tablet 10 mg PO BID Qty: 60 1RF fluoxetine [Prozac] 40 mg capsule 40 mg PO DAILY Qty: 30 1RF cyclobenzaprine 10 MG tablet 10 mg PO TIDP PRN (Reason: Moderate To Severe Pain) Qty: 30 0RF Referrals Follow up/Referrals: Brittney Pena APRN [Primary Care Provider] - See instructions Clinical Impressions Clinical Impression: Flu-like symptoms Instructions Patient Instructions: DI for Viral Syndrome Discharge ED Provider: Ken Valle General Adult HPI General Chief complaint: Upper Respiratory Infection Stated complaint: cough, congestion, body aches Time Seen by Provider: 01/19/22 17:05 Mode of Arrival: Ambulatory Limitations: No Limitations Description of Symptoms (Recalled from ER Triage Doc. by RN): COUGH, FEVER, CONGESTION, DIARRHEA FOR 2-3 DAYS History of Present Illness HPI narrative: 36-year-old male, presents with cough, fever, congestion, diarrhea for 2 to 3 days, no fever, nausea or vomiting, no known sick contacts although son accompanies him who is also being seen with similar symptoms. No treatments prior to arrival here Related Data Previous Rx's Medication Instructions Recorded cyclobenzaprine 10 mg tablet 10 mg PO TIDP PRN Moderate To 08/30/21 Severe Pain #30 tabs buspirone 10 mg tablet 10 mg PO BID #60 tabs 01/18/22 fluoxetine 40 mg capsule (Prozac) 40 mg PO DAILY #30 caps 01/18/22 Allergies Allergy/AdvReac Type Severity Reaction Status Date / Time codeine Allergy Verified 01/18/22 12:00 iodine Allergy Verified 01/18/22 12:00 [facility] Disclaimer: The information contained in this section may have been updated after the patient was seen, as this information can be updated by other users. Medical History Major depressive disorder Posttraumatic stress disorder Family History (Updated 01/19/22 @ 17:46 by Rosa Montana RN) Other No significant family history Social History Smoking Status: Unknown if ever smoked second hand exposure: No alcohol intake: never substance use type: former substance user and methamphetamine current occupational status: other Travel in the last 8 weeks: None housing: house number of children: 1 ROS Obtained: Yes Systems reviewed as appropriate & no additional complaints except as documented Constitutional Constitutional: Reports system reviewed and no additional complaints, except as documented Eyes Eyes: Reports system reviewed and no additional complaints, except as documented ENT Ears, Nose, Mouth, and Throat: Reports system reviewed and no additional complaints, except as documented Cardiovascular Cardiovascular: Reports system reviewed and no additional complaints, except as documented Respiratory Respiratory: Reports system reviewed and no additional complaints, except as documented Gastrointestinal Gastrointestingal: Reports system reviewed and no additional complaints, except as documented Genitourinary Male Genitourinary: Reports system reviewed and no additional complaints, except as documented Musculoskeletal Musculoskeletal: Reports system reviewed and no additional complaints, except as documented Integumentary/Breasts Skin/Breast: Reports system reviewed and no additional complaints, except as documented Neurologic Neurologic: Reports system reviewed and no additional complaints, except as documented Endocrine Endocrine: Reports system reviewed and no additional complaints, except as documented Hematologic/Lymphatic Henatologic/Lymphatic: Reports system reviewed and no additional complaints, except as documented Allergic/Immunologic Allergic/Immunologic: Reports system reviewed and no additional complaints, e
[2022-01-19 18:10] VITALS: BP 131/79; PULSE 90; RESP 18; TEMP 36.7; O2SAT 98
[2022-01-19 18:29] LABS: Influenza A, PCR Detected (NotDetected)
== END 2022-01-19 18:15 | disposition home or self-care (01) ==
PROVIDERS: Emergency Provider Emergency Medicine; PCP Nurse Practitioner Family
DX: J10.1 Influenza due to other identified influenza virus with other respiratory manifestations (principal)
CPT/HCPCS: 99283; C9803; U0003; U0005

== ENCOUNTER 2022-01-26 11:47 | Emergency (ER) | payer MEDICARE, OTHER, SELFPAY ==
[2022-01-26 11:57] VITALS: BP 119/85; PULSE 68; RESP 18; O2SAT 98
[2022-01-26 12:00] VITALS: BP 132/72; PULSE 69; RESP 17; O2SAT 96
[2022-01-26 12:02] VITALS: BP 119/85; PULSE 80; RESP 20; TEMP 36.7; O2SAT 98; BMI 31.1
[2022-01-26 12:31] VITALS: BP 122/51; PULSE 58; RESP 20; O2SAT 95
--- NOTE | 2022-01-26 12:38 | XR_ITS ---
FINAL REPORT CLINICAL HISTORY: pain for 3 wks FINDINGS: LEFT ELBOW 3 views were obtained. There is no acute fracture or dislocation. The joint spaces are intact. There is no soft tissue abnormality. IMPRESSION: No acute bony abnormality. Reviewed, Interpreted and Dictated by Marty Gutierrez III, MD Transcribed by Dora Vincent Authenticated and [facility]
--- NOTE | 2022-01-26 12:40 | HMH.EDGENADL ---
Discharge Plan Disposition Patient Disposition: Home, Self-Care Condition: Good Prescriptions Prescriptions: New methylprednisolone [Medrol (Abraham)] 4 mg tablets,dose pack 4 mg PO DAILY Qty: 21 0RF No Action buspirone 10 mg tablet 10 mg PO BID Qty: 60 1RF fluoxetine [Prozac] 40 mg capsule 40 mg PO DAILY Qty: 30 1RF cyclobenzaprine 10 MG tablet 10 mg PO TIDP PRN (Reason: Moderate To Severe Pain) Qty: 30 0RF Referrals Follow up/Referrals: Brittney Pena APRN [Primary Care Provider] - See instructions John Murray MD [Physician] - See instructions Activity Restrictions/Add. Instructions Additional Instructions/Restrictions: Medrol Dosepak as prescribed. Ice 20 minutes 4 times a day to painful area. Follow-up with orthopedics, Dr. Murray, call for appointment. Clinical Impressions Clinical Impression: Epicondylitis, lateral Instructions Patient Instructions: DI for Lateral Epicondylitis (Tennis Elbow) Discharge ED Provider: Venkata Chandler General Adult HPI General Chief complaint: PAIN Stated complaint: shooting pain in Lt elbow Time Seen by Provider: 01/26/22 12:30 Mode of Arrival: Ambulatory Limitations: No Limitations Description of Symptoms (Recalled from ER Triage Doc. by RN): Patient reports a shooting pain in his left elbow. Patient reports the pain x3 weeks but got significantly worse this morning. History of Present Illness HPI narrative: States pain in my oenous (my elbow) elbow for 3 weeks. He points to the area of the left radial epicondyle. He does not recall any injury. The pain worsens with certain movements and pushing with that arm. The pain shoots down from his mid upper arm down to his hand at times. He has tried Tylenol and ibuprofen and lidocaine spray all without relief. States he believes he is having a problem with the cartilage and a pinched nerve. Related Data Previous Rx's Medication Instructions Recorded cyclobenzaprine 10 mg tablet 10 mg PO TIDP PRN Moderate To 08/30/21 Severe Pain #30 tabs buspirone 10 mg tablet 10 mg PO BID #60 tabs 01/18/22 fluoxetine 40 mg capsule (Prozac) 40 mg PO DAILY #30 caps 01/18/22 methylprednisolone 4 mg tablets in 4 mg PO DAILY #21 tabs 01/26/22 a dose pack (Medrol (Abraham)) Allergies Allergy/AdvReac Type Severity Reaction Status Date / Time codeine Allergy Verified 01/18/22 12:00 iodine Allergy Verified 01/18/22 12:00 [facility] Disclaimer: The information contained in this section may have been updated after the patient was seen, as this information can be updated by other users. Medical History Major depressive disorder Posttraumatic stress disorder Family History (Updated 01/19/22 @ 17:46 by Rosa Montana RN) Other No significant family history Social History (Updated 01/19/22 @ 17:46 by Rosa Montana RN) Smoking Status: Current every day smoker second hand exposure: No alcohol intake: never substance use type: former substance user and methamphetamine current occupational status: other Travel in the last 8 weeks: None housing: house number of children: 1 ROS Obtained: Yes Systems reviewed as appropriate & no additional complaints except as documented Constitutional Constitutional: Denies fever(s) and Denies weakness Musculoskeletal Musculoskeletal: Reports as per HPI, Reports arthralgias (Left elbow), Denies numbness and Reports radiating pain into limb Neurologic Neurologic: Denies numbness and Denies weakness Physical Exam General General appearance: alert and in no apparent distress Chest Chest inspection: Present normal inspection and symmetric chest wall rise Respiratory Respiratory exam: Absent respiratory distress Cardiovascular Cardiovascular exam: Present regular rate Expanded Upper Extremity Exam Left: Comment: There is tenderness of the left elbow over the radial epicondyle area an
[2022-01-26 13:19] VITALS: BP 142/88; PULSE 72; RESP 18; TEMP 36.7; O2SAT 93
== END 2022-01-26 13:21 | disposition home or self-care (01) ==
PROVIDERS: Emergency Provider Emergency Medicine; PCP Nurse Practitioner Family
DX: M77.12 Lateral epicondylitis, left elbow (principal); M79.602 Pain in left arm; F43.10 Post-traumatic stress disorder, unspecified; F32.9 Major depressive disorder, single episode, unspecified; F17.200 Nicotine dependence, unspecified, uncomplicated; Z88.5 Allergy status to narcotic agent; Z88.8 Allergy status to other drugs, medicaments and biological substances
CPT/HCPCS: 73080; 96372; 99284

== ENCOUNTER 2022-04-17 15:05 | Emergency (ER) | payer MEDICARE, OTHER, SELFPAY ==
[2022-04-17 15:20] VITALS: BP 113/72; PULSE 62; RESP 20; TEMP 36.4; O2SAT 95; BMI 36.8
--- NOTE | 2022-04-17 15:41 | EXP.UTC ---
Discharge Plan Disposition Patient Disposition: Home, Self-Care Condition: Good Prescriptions Prescriptions: New amoxicillin-pot clavulanate 875-125 mg Tablet 1 tab PO Q12H Qty: 20 0RF No Action buspirone 10 mg tablet 10 mg PO BID Qty: 60 1RF fluoxetine [Prozac] 40 mg capsule 80 mg PO DAILY Qty: 60 1RF methylprednisolone [Medrol (Abraham)] 4 mg tablets,dose pack 4 mg PO DAILY Qty: 21 0RF cyclobenzaprine 10 MG tablet 10 mg PO TIDP PRN (Reason: Moderate To Severe Pain) Qty: 30 0RF Referrals Follow up/Referrals: Brittney Pena APRN [Primary Care Provider] - See instructions Clinical Impressions Clinical Impression: Otitis media Qualifiers: Otitis media type: unspecified Laterality: right Qualified Code(s): H66.91 - Otitis media, unspecified, right ear Instructions Patient Instructions: Tooth Decay, Tooth Abscess, Middle Ear Infection Discharge ED Provider: Sean Ordaz [facility] [place] [place] General Stated complaint: ear pain Mode of Arrival: Ambulatory Source of Information: Patient Limitations: No Limitations Time Seen by Provider: 04/17/22 15:41 Description of Symptoms (Recalled from Triage Doc. by RN): PATIENT C/O BILATERAL EAR PRESSURE SINCE SUNDAY HEENT Symptoms (Recalled from RN notes): Yes Resp Symptoms (Recalled from RN notes): No Skin Symptoms (Recalled from RN notes): No MS Symptoms (Recalled from RN notes): No Functional Status (Recalled from RN notes): WNL History of Present Illness Provider Complaint: Patient states he has been having pain in his right ear for several days and not able to hear out his left ear feels like it is stopped up with wax wanting to get it flushed out and also states that he has several broken and bad teeth on the right lower gumline and not sure if his teeth is causing his ears to hurt or ear causing his teeth to ache Related Data Previous Rx's Medication Instructions Recorded cyclobenzaprine 10 mg tablet 10 mg PO TIDP PRN Moderate To 08/30/21 Severe Pain #30 tabs methylprednisolone 4 mg tablets in 4 mg PO DAILY #21 tabs 01/26/22 a dose pack (Medrol (Abraham)) buspirone 10 mg tablet 10 mg PO BID #60 tabs 03/20/22 fluoxetine 40 mg capsule (Prozac) 80 mg PO DAILY #60 caps 03/20/22 amoxicillin 875 mg-potassium 1 tab PO Q12H #20 tabs 04/17/22 clavulanate 125 mg tablet Allergies Allergy/AdvReac Type Severity Reaction Status Date / Time codeine Allergy Verified 03/20/22 13:13 iodine Allergy Verified 03/20/22 13:13 Worker's Comp Is this a Worker's Comp case?: No [facility] Disclaimer: The information contained in this section may have been updated after the patient was seen, as this information can be updated by other users. Medical History Major depressive disorder Posttraumatic stress disorder Family History (Updated 01/19/22 @ 17:46 by Rosa Montana RN) Other No significant family history Social History (Updated 01/19/22 @ 17:46 by Rosa Montana RN) Smoking Status: Current every day smoker second hand exposure: No alcohol intake: never substance use type: former substance user and methamphetamine current occupational status: other Travel in the last 8 weeks: None housing: house number of children: 1 ROS Obtained: Yes All systems reviewed & no additional complaints except as documented and Yes Systems reviewed as appropriate & no additional complaints except as documented Constitutional Constitutional: Reports system reviewed and no additional complaints, except as documented and Reports as per HPI ENT Ears, Nose, Mouth, and Throat: Reports system reviewed and no additional complaints, except as documented, Reports as per HPI, Reports dental pain and Reports otalgia Cardiovascular Cardiovascular: Reports system reviewed and no additional complaints, except as documented and Reports as per HPI Respiratory Respiratory: Reports system reviewed and no additi
[2022-04-17 15:59] VITALS: BP 113/72; PULSE 62; RESP 20; TEMP 36.4; O2SAT 95
== END 2022-04-17 16:05 | disposition home or self-care (01) ==
PROVIDERS: Emergency Provider Emergency Medicine; PCP Nurse Practitioner Family
DX: H66.91 Otitis media, unspecified, right ear (principal)
CPT/HCPCS: 99212; 99213; G0463

== ENCOUNTER → 2022-06-09 14:40 | Outpatient (CLI) | payer MEDICARE, BC, SELFPAY ==
[2022-06-25 20:46] LABS: Hepatitis C Antibody Reactive
== END ==
LOC: LAB 14:42
PROVIDERS: PCP Nurse Practitioner Family; Visit Provider Nurse Practitioner Family
DX: Z20.5 Contact with and (suspected) exposure to viral hepatitis (principal)
CPT/HCPCS: 36415; 87380; 87522

== ENCOUNTER 2022-08-08 15:20 | Emergency (ER) | payer MEDICARE, BC, SELFPAY ==
[2022-08-08] VITALS (8 sets, daily range): BP systolic 88–120; BP diastolic 59–74; PULSE 54–74; RESP 18–19; TEMP 36.7–36.8; O2SAT 93–97; BMI 34.9; BMI 34.8
--- NOTE | 2022-08-08 15:18 | ECG_ITS ---
APPROVED REPORT Exam: Resting ECG HR:60 bpm ECG Measurements Heart Rate 60 AXES MS 128 P 37 QRSd 114 QRS 29 QT 386 T 13 QTc 386 Conclusion SINUS RHYTHM WITH SINUS ARRHYTHMIA Isolated Q in III ABNORMAL ECG UNCONFIRMED REPORT Electronically signed by : Abel Rueda MD 08/08/2022 20:09:44
--- NOTE | 2022-08-08 15:24 | XR_ITS ---
FINAL REPORT TECHNIQUE: Chest PA & Lateral CLINICAL HISTORY: Chest pain COMPARISON: August 2021 FINDINGS: 2 views of the chest were performed. The heart size is normal. The mediastinum is within normal limits. There are mild chronic changes in both lungs. There is no acute cardiopulmonary process. There are no pleural effusions. There is no pneumothorax. The bony thorax appears intact. IMPRESSION: No acute cardiopulmonary process. Reviewed, Interpreted and Dictated by Hussein Arriaga MD Transcribed by Gurpreet James Authenticated and [facility]
[2022-08-08 15:36] LABS: Basophils % 0.5 % (0.1-2.0); Eosinophils # 0.2 K/mm3 (0.0-0.4); Eosinophils % 2.7 % (0.1-12.0); Hematocrit 45.3 % (42.0-52.0); Hemoglobin 14.8 g/dL (14.1-18.0); Lymphocytes # 2.6 K/mm3 (0.7-4.5); Lymphocytes % 32.7 % (10-50); Mean Corpuscular HGB Conc 32.7 g/dL (31.8-35.4); Mean Corpuscular Hemoglobin 26.1 pg (27.0-31.2); Mean Corpuscular Volume 79.6 fl (80-94); Mean Platelet Volume 7.5 fl (7.4-10.4); Monocytes # 0.7 K/mm3 (0.1-1.0); Monocytes % 9.2 % (1.7-9.3); Neutrophils # 4.4 K/mm3 (1.8-7.8); Neutrophils % 54.9 % (37.0-80.0); Platelet Count 324 K/mm3 (142-424); Red Blood Count 5.69 M/mm3 (4.60-6.20); Red Cell Distribution Width 13.3 % (11.5-17.5); White Blood Count 8.1 K/mm3 (4.8-10.8)
[2022-08-08 15:39] LABS: Chloride 100 mmol/L (98-107)
[2022-08-08 15:40] LABS: Potassium 4.2 mmoL/L (3.5-5.1); Sodium 139 mmol/L (136-145)
[2022-08-08 15:42] LABS: Alanine Aminotransferase 55 U/L (12-78); Albumin Level 3.9 g/dl (3.5-5.0); Alkaline Phosphatase 72 U/L (38-126); Aspartate Amino Transferase 45 U/L (17-59); Bilirubin,Total 0.3 mg/dl (0.2-1.3); Blood Urea Nitrogen 15 mg/dl (9-20); Creatinine Clearance Estimated 134 mL/min (50-200); Estimated Glomerular Filt Rate 68 ml/min (>60); GFR (African American) 82 ML/MIN (>60)
[2022-08-08 15:43] LABS: Albumin/Globulin Ratio 1.3 (1.1-1.8); Anion Gap 12.2 mEq/L (5-15); Carbon Dioxide 31 mmol/L (22.0-30.0); Globulin 2.9 g/dL (1.3-3.2); Glucose 95 mg/dl (74-100); Total Protein,Serum 6.8 g/dl (6.3-8.2)
[2022-08-08 15:45] LABS: Activated Partial Thrombo Time 27.6 seconds (22.8-30.6); INR 0.97 (0.9-1.1); Prothrombin Time 10.5 seconds (10.1-12.5)
--- NOTE | 2022-08-08 15:47 | PC.NURSE ---
Went to administer standard 324mg ASA for cardiac complaint. Attending came in room and stated, Don't give that. He doesn't need it because that's not standard of care.
--- NOTE | 2022-08-08 15:50 | HMH.EDGENADL ---
Discharge Plan Disposition Patient Disposition: Home, Self-Care Condition: Fair Prescriptions Prescriptions: New pantoprazole [Protonix] 40 mg tablet,delayed release (DR/EC) 40 mg PO DAILY 28 Days Qty: 28 0RF No Action fluoxetine [Prozac] 40 mg capsule 80 mg PO DAILY buspirone 10 mg tablet 10 mg PO BID Caplyta 42 mg capsule 42 mg PO DAILY Referrals Follow up/Referrals: Lilo Castanon APRN [Primary Care Provider] - See instructions Clinical Impressions Clinical Impression: Atypical chest pain Instructions Patient Instructions: DI for Atypical Chest Pain Discharge ED Provider: Mikie Durbin General Adult HPI General Chief complaint: Chest Pain Stated complaint: chest pain Time Seen by Provider: 08/08/22 15:30 Mode of Arrival: Ambulatory Source of Information: Patient Limitations: No Limitations Description of Symptoms (Recalled from ER Triage Doc. by RN): 37 M presents from home after he came in to see his PCP for bilateral knee pain. He reports waking up this AM with chest tightness, but it went away with time. He was coming to see is PCP, but instead came to the ED because his chest tightness began again. Patient denies cardiac history; however, believes he probably had a heart attack a month ago when this first happened. History of Present Illness HPI narrative: This is a 37-year-old male with a history of bipolar disorder also PTSD and drug and alcohol abuse who presents to the emergency room with episodes of substernal chest pain which she describes as sharp and radiating to both arms and both legs. He said the pain was associated with lightheadedness. Denies any cough hemoptysis fevers or chills headache. 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 Related Data Home Medications Medication Instructions Recorded Confirmed buspirone 10 mg tablet 10 mg PO BID Mood 08/08/22 08/08/22 fluoxetine 40 mg capsule (Prozac) 80 mg PO DAILY Mood 08/08/22 08/08/22 lumateperone 42 mg capsule 42 mg PO DAILY Mood 08/08/22 08/08/22 (Caplyta) Previous Rx's Medication Instructions Recorded pantoprazole 40 mg tablet,delayed 40 mg PO DAILY 4 weeks #28 tabs 08/08/22 release (Protonix) Allergies Allergy/AdvReac Type Severity Reaction Status Date / Time codeine Allergy Verified 05/11/22 14:23 iodine Allergy Verified 05/11/22 14:23 [facility] Disclaimer: The information contained in this section may have been updated after the patient was seen, as this information can be updated by other users. Medical History (Updated 08/08/22 @ 17:30 by Mikie Durbin MD) Major depressive disorder Posttraumatic stress disorder Surgical History (Updated 08/08/22 @ 15:50 by Kwame Bello, RN) No history of previous surgery Family History Other No significant family history Social History Smoking Status: Current every day smoker second hand exposure: No alcohol intake: never substance use type: former substance user and methamphetamine current occupational status: other Travel in the last 8 weeks: None housing: house number of children: 1 ROS Obtained: Yes All systems reviewed & no additional complaints except as documented Skin no rash or lesions HEENT no runny nose sore throat Pulmonary no cough or shortness of breath Cardiovascular see HPI GI no abdominal pain nausea or vomiting no dysuria pyuria hematuria Musculoskeletal no neck or back pain Endocrine no polydipsia polyuria or polyphasia Psych no SI or HI The rest of the systems were reviewed and found to be negative Physical Exam Narrative Physical exam: Skin: Warm and dry HEENT: Normocephalic atraumatic extract muscles are intact pupils are equal and reactive to light Neck: Supple nontender Lungs: Clear to auscultation Heart: Regular rate
[2022-08-08 15:52] LABS: NT Pro Brain Natriuretic Pep. 83.1 pg/mL (0-125)
[2022-08-08 15:57] LABS: Troponin I < 0.01 ng/ml (0.00-0.034)
[2022-08-08 16:09] LABS: Lipase 78 U/L (23-300)
[2022-08-08 16:39] LABS: Ethyl Alcohol < 10 mg/dl (0-10)
== END 2022-08-08 17:56 | disposition home or self-care (01) ==
PROVIDERS: Emergency Provider Emergency Medicine; PCP Nurse Practitioner Family
DX: R07.2 Precordial pain (principal); F17.210 Nicotine dependence, cigarettes, uncomplicated; R94.31 Abnormal electrocardiogram [ECG] [EKG]; F33.9 Major depressive disorder, recurrent, unspecified
CPT/HCPCS: 71046; 80053; 83690; 83880; 84484; 85025; 85610; 85730; 93005; 96374; 99284; J2405

== ENCOUNTER → 2022-08-24 08:28 | Outpatient (CLI) | payer MEDICARE, BC, SELFPAY ==
--- NOTE | 2022-08-24 08:34 | US_ITS ---
FINAL REPORT CLINICAL HISTORY: HEP C COMPARISON: None FINDINGS: Sonographic images of the right upper quadrant were obtained. The pancreas is partially obscured. There is slight increased echogenicity in the liver that may represent fatty infiltration. The gallbladder appears normal without evidence of gallstones, although there is slight thickening of the gallbladder wall (5mm) and a small amount of pericholecystic fluid present.There is no evidence of biliary ductal dilatation.The common duct measures 3mm. Limited images of the right kidney are unremarkable. The portal vein is at the upper limits of normal measuring 13 mm in diameter, and directional flow is unremarkable. IMPRESSION: Although no evidence of gallstones there is slight thickening of the gallbladder wall and a small amount of pericholecystic fluid present. No definite ductal dilatation is seen. Mildly increased echogenicity of the liver may represent fatty infiltration. Reviewed, Interpreted and Dictated by Marty Gutirerez III, MD Transcribed by Ute Waite Authenticated and [facility]
== END ==
PROVIDERS: PCP Nurse Practitioner Family; Visit Provider Physician Assistant
DX: B18.2 Chronic viral hepatitis C (principal)
CPT/HCPCS: 76705

== ENCOUNTER → 2022-09-04 15:26 | Outpatient (CLI) | payer MEDICARE, BC, SELFPAY ==
--- NOTE | 2022-09-04 15:32 | CT_ITS ---
FINAL REPORT TECHNIQUE: Thin section axial images were obtained through the paranasal sinuses without contrast. CLINICAL HISTORY: chronic sinusitis COMPARISON: None FINDINGS: The paranasal sinuses are clear. There is no air-fluid level or significant mucosal thickening. The bilateral ethmoid infundibulum are patent. There is mild left nasal septal deviation. There is a small periapical lucency surrounding the posterior most right maxillary molar. A periapical abscess cannot be excluded. Remaining soft tissues are within normal limits. IMPRESSION: Periapical lucencies surrounding the posterior most right maxillary molar. A periapical abscess cannot be excluded. Mild left nasal septal deviation. Reviewed, Interpreted and Dictated by Carolina Phipps MD Transcribed by Ute Waite Authenticated and [facility]
== END ==
PROVIDERS: PCP Nurse Practitioner Family; Visit Provider Otolaryngology
DX: J32.9 Chronic sinusitis, unspecified (principal)
CPT/HCPCS: 70486

== ENCOUNTER 2022-10-16 09:25 | Emergency (ER) | payer MEDICARE, OTHER, SELFPAY ==
[2022-10-16 09:55] VITALS: BP 115/71; PULSE 64; RESP 18; TEMP 36.8; O2SAT 98; BMI 35.5
--- NOTE | 2022-10-16 10:03 | EXP.UTC ---
Discharge Plan Disposition Patient Disposition: Home, Self-Care Condition: Good Prescriptions Prescriptions: New benzonatate [benzonatate] 100 mg capsule 100 mg PO TIDP PRN (Reason: Cough) Qty: 30 0RF amoxicillin [amoxicillin] 875 mg tablet 875 mg PO Q12H Qty: 20 0RF ondansetron 4 mg Tablet,Disintegrating 4 mg PO Q8H PRN (Reason: Nausea) Qty: 12 0RF No Action hydroxyzine pamoate [Vistaril] 25 mg capsule 25 mg PO TID PRN (Reason: for increased anxiety) Qty: 90 1RF fluoxetine [Prozac] 40 mg capsule 80 mg PO DAILY Qty: 60 2RF Caplyta 42 mg capsule 42 mg PO DAILY Qty: 30 2RF pantoprazole [Protonix] 40 mg tablet,delayed release (DR/EC) 40 mg PO DAILY 28 Days Qty: 28 0RF Referrals Follow up/Referrals: Ayesha Hernandez APRN [Primary Care Provider] - See instructions Activity Restrictions/Add. Instructions Additional Instructions/Restrictions: Drink plenty of fluids. Take tylenol or ibuprofen for pain or fever. Take the medications as directed. Follow up with your regular doctor. GO TO THE ER FOR ANY WORSENING SYMPTOMS Clinical Impressions Clinical Impression: Sinusitis, Otitis media, Acute viral syndrome Instructions Patient Instructions: Sinusitis, DI for Sinusitis Discharge ED Provider: Santiago Glaser [facility] [place] General Stated complaint: congested, ear pain, headache Time Seen by Provider: 10/16/22 10:03 Related Data Previous Rx's Medication Instructions Recorded pantoprazole 40 mg tablet,delayed 40 mg PO DAILY 4 weeks #28 tabs 08/08/22 release (Protonix) fluoxetine 40 mg capsule (Prozac) 80 mg PO DAILY Mood #60 caps 08/28/22 hydroxyzine pamoate 25 mg capsule 25 mg PO TID PRN for increased 08/28/22 (Vistaril) anxiety #90 caps lumateperone 42 mg capsule 42 mg PO DAILY Mood #30 caps 08/28/22 (Caplyta) amoxicillin 875 mg tablet 875 mg PO Q12H #20 tabs 10/16/22 benzonatate 100 mg capsule 100 mg PO TIDP PRN Cough #30 caps 10/16/22 ondansetron 4 mg disintegrating 4 mg PO Q8H PRN Nausea #12 tabs 10/16/22 tablet Allergies Allergy/AdvReac Type Severity Reaction Status Date / Time codeine Allergy Verified 08/16/22 13:36 iodine Allergy Verified 08/16/22 13:36 PFSH PFS Disclaimer: The information contained in this section may have been updated after the patient was seen, as this information can be updated by other users. Medical History (Updated 10/16/22 @ 10:23 by Santiago Glaser APRN) Cerumen impaction Chronic ear infection Chronic sinusitis Excessive cerumen in both ear canals Major depressive disorder Posttraumatic stress disorder Surgical History No history of previous surgery Family History Other No significant family history Social History Smoking Status: Current every day smoker second hand exposure: No alcohol intake: never substance use type: former substance user and methamphetamine current occupational status: other Travel in the last 8 weeks: None housing: house number of children: 1 ROS Obtained: Yes All systems reviewed & no additional complaints except as documented Constitutional Constitutional: Denies chills, Reports fever(s) and Reports poor appetite Eyes Eyes: Denies eye discharge ENT Ears, Nose, Mouth, and Throat: Denies ear discharge, Reports otalgia, Denies hearing loss, Denies sinus pain and Reports sore throat Cardiovascular Cardiovascular: Denies chest pain and Denies dyspnea Respiratory Respiratory: Denies chest congestion, Reports cough and Denies dyspnea Gastrointestinal Gastrointestingal: Denies abdominal pain, diarrhea, nausea or vomiting Musculoskeletal Musculoskeletal: Denies arthralgias Integumentary/Breasts Skin/Breast: Denies rash Physical Exam General General appearance: alert and in no apparent distress He
[2022-10-16 10:09] VITALS: BP 115/71; PULSE 64; RESP 18; TEMP 36.8; O2SAT 98
[2022-10-16 10:17] LABS: UTC Strep Screen (Rapid) Negative (Negative)
== END 2022-10-16 10:59 | disposition home or self-care (01) ==
PROVIDERS: Emergency Provider Nurse Practitioner Family; PCP Nurse Practitioner Family
DX: J01.90 Acute sinusitis, unspecified (principal); H66.93 Otitis media, unspecified, bilateral; B34.9 Viral infection, unspecified; F17.210 Nicotine dependence, cigarettes, uncomplicated; F33.9 Major depressive disorder, recurrent, unspecified; F43.10 Post-traumatic stress disorder, unspecified
CPT/HCPCS: 87880; 99212; 99214; G0463

== ENCOUNTER → 2022-12-20 08:56 | Outpatient (CLI) | payer MEDICARE, MEDICAID, SELFPAY ==
--- NOTE | 2022-12-20 08:57 | NM_ITS ---
FINAL REPORT CLINICAL HISTORY: right upper quad pain u/s neg for stones 10:55 am 7.72 [facility] tc choletec 12:10pm 2.4 mcg of cck pain with cck COMPARISON: None FINDINGS: Sequential anterior projection images of the abdomen were obtained after the intravenous injection of 7.72 mCi technetium 99m Choletec. There is normal uptake of radiotracer by the liver. The bile ducts are visualized by 5 minutes. Gallbladder activity is seen by 5 minutes. Bowel activity is noted by 5 minutes. After 1 hour, 2.4 ?g of CCK was injected intravenously for calculation of gallbladder ejection fraction. The gallbladder ejection fraction is 78%, which is within normal limits. IMPRESSION: No evidence of cystic duct or bile duct obstruction. Normal gallbladder ejection fraction of 78%. Reviewed, Interpreted and Dictated by Marty Gutierrez III, MD Transcribed by Ute Waite Authenticated and [facility]
== END ==
PROVIDERS: PCP Nurse Practitioner Family; Visit Provider Surgery
DX: R10.11 Right upper quadrant pain (principal)
CPT/HCPCS: 78227; A9537; J2805

== ENCOUNTER 2023-01-13 14:33 | Emergency (ER) | payer MEDICARE, MEDICAID, SELFPAY ==
--- NOTE | 2023-01-13 14:40 | XR_ITS ---
PROCEDURE INFORMATION: Exam: XR Left Knee Exam date and time: 01/13/2023 2:45 PM Age: 37 years old Clinical indication: Pain; Knee; Left; Additional info: Pain after moving stuff TECHNIQUE: Imaging protocol: Radiologic exam of the left knee. Views: 3 views. COMPARISON: CR XR FOOT LT MIN 3V 07/02/2021 4:01 PM FINDINGS: Bones/joints: No evidence of acute fracture or malalignment. No significant knee joint effusion. Soft tissues: Unremarkable. IMPRESSION: No evidence of acute osseous abnormality in the left knee.
--- NOTE | 2023-01-13 14:40 | XR_ITS ---
PROCEDURE INFORMATION: Exam: XR Lumbosacral Spine Exam date and time: 01/13/2023 2:39 PM Age: 37 years old Clinical indication: Low back pain; Additional info: Pain after moving stuff TECHNIQUE: Imaging protocol: Radiologic exam of the lumbosacral spine. Views: 4 or 5 views. COMPARISON: NM HEPATOBILIARY W PHARM 12/20/2022 12:04 PM FINDINGS: Bones/joints: Standard lumbosacral anatomy with 5 [id number] lumbar type vertebral bodies. No evidence of acute fracture or malalignment. No spondylolisthesis. No pars defects. Multilevel degenerative disc disease with minor disc space narrowing and endplate changes from T12-L3 where there is also minor anterior wedging of the vertebral bodies compatible with Scheuermann's disease. Soft tissues: Unremarkable. IMPRESSION: 1. No evidence of acute osseous abnormality in the lumbar spine. 2. Degenerative changes, as above.
[2023-01-13 15:05] VITALS: BP 125/73; PULSE 86; RESP 19; TEMP 36.7; O2SAT 98; BMI 36.2
--- NOTE | 2023-01-13 15:14 | EXP.UTC ---
Discharge Plan Disposition Patient Disposition: Home, Self-Care Condition: Good Prescriptions Prescriptions: New methocarbamol 500 mg tablet 500 mg PO TID PRN (Reason: muscle spasm) Qty: 15 0RF No Action fluoxetine [Prozac] 40 mg capsule 80 mg PO DAILY Qty: 60 2RF hydroxyzine pamoate 50 mg capsule 50 mg PO TID PRN (Reason: anxiety) Qty: 90 1RF bupropion HCl [Wellbutrin XL] 150 mg tablet extended release 24 hr 150 mg PO DAILY Qty: 30 1RF Caplyta 42 mg capsule 42 mg PO DAILY Qty: 30 2RF ondansetron 4 mg Tablet,Disintegrating 4 mg PO Q8H PRN (Reason: Nausea) Qty: 12 0RF pantoprazole [Protonix] 40 mg tablet,delayed release (DR/EC) 40 mg PO DAILY 28 Days Qty: 28 0RF Referrals Follow up/Referrals: Abel Rueda MD [Primary Care Provider] - See instructions Activity Restrictions/Add. Instructions Additional Instructions/Restrictions: *Ibuprofen jozef 6 hours with meal as needed for pain/inflammation if you can take it *Remember you had a Toradol shot in the clinic today, which is similar to Motrin so none for the next 8 hours *Not additional anti-inflammatory like motrin, aleve, advil with the above amount of ibuprofen. You can still take Tylenol every 4 hours as needed if you need something else for pain *Ice 20 minutes every 2 hours for the first 48 hours after the initial injury followed by moist heat every 20 minutes 3-4 times a day to affected area *Muscle relaxer every 8 hours as needed for muscle spasms but remember, it WILL cause drowsiness You cannot take it and drive, operate machinery or care for small children. *Keep this area active, no movement leads to more stiffness, However take it easy and avoid heavy lifting pushing or pulling *Follow up with you family doctor if no improvement for further treatment Straight to ER if any life threatening symptoms Clinical Impressions Clinical Impression: Muscle pain Instructions Patient Instructions: DI for Low Back Pain, DI for Knee Pain, Methocarbamol Discharge ED Provider[place] Anuja [place]all[place] [facility] [place] General Stated complaint: abd pain, back pain, left knee pain Mode of Arrival: Ambulatory Source of Information: Patient Limitations: No Limitations Time Seen by Provider: 11/25/23 15:14 Description of Symptoms (Recalled from Triage Doc. by RN): PATIENT C/O PAIN IN GROIN, LOWER BACK, AND LEFT KNEE THAT STARTED 2 DAYS AGO AFTER HELPING SOMEONE MOVE HEAVY OBJECTS HEENT Symptoms (Recalled from RN notes): No Resp Symptoms (Recalled from RN notes): No Skin Symptoms (Recalled from RN notes): No MS Symptoms (Recalled from RN notes): Yes Functional Status (Recalled from RN notes): WNL History of Present Illness Provider Complaint: Patient states that he recently helped a friend move and was lifting a lot of heavy objects like dressers and cabinets States that since then he has been having muscle spasm like pain in his lower back and groin area States that he has also been having pain in his left knee not sure what he may have done to that States that he hasnt taken any over the counter pain medication because he thought it wouldnt be strong enough to help Denies loss of control of bowel or bladder denies issues with urination or defication States that pain is just worse with movement Related Data Previous Rx's Medication Instructions Recorded pantoprazole 40 mg tablet,delayed 40 mg PO DAILY 4 weeks #28 tabs 08/08/22 release (Protonix) ondansetron 4 mg disintegrating 4 mg PO Q8H PRN Nausea #12 tabs 10/16/22 tablet bupropion HCl 150 mg 24 hr tablet, 150 mg PO DAILY #30 tabs 01/08/23 extended release (Wellbutrin XL) fluoxetine 40 mg capsule (Prozac) 80 mg PO DAILY Mood #60 caps 01/08/23 hydroxyzine pamoate 50 mg capsule 50 mg PO TID PRN anxiety #90 caps 01/08/23 lumateperone 42 mg capsule 42 mg PO DAILY Mood #30 caps 01/08/23 (Caplyta) methocarbamol 500 mg tablet 500 mg PO TID PRN muscle spasm #15 01/13/23 tabs Allergie
[2023-01-13 15:20] LABS: Apearance,Urine Clear (Clear); Bilirubin,Urine Negative (Negative); Blood, Urine Negative (Negative); Color,Urine Yellow (Yellow); Glucose,Urine (UA) Negative (Negative); Ketones,Urine Negative (Negative); PH,Urine 5.5 (5.0-8.5); Protein,Urine Negative (Negative); UTC Leukocyte Esterase,Urine Negative (Negative); UTC Nitrate,Urine Negative (Negative); Urobilinogen,Urine 0.2 EU/dl (0.2)
[2023-01-13 16:14] VITALS: BP 125/73; PULSE 86; RESP 19; TEMP 36.7; O2SAT 98
== END 2023-01-13 16:28 | disposition home or self-care (01) ==
PROVIDERS: Emergency Provider Nurse Practitioner; PCP Internal Medicine Adolescent Medicine
DX: M54.50 Low back pain, unspecified (principal); M25.562 Pain in left knee; R10.9 Unspecified abdominal pain; M62.838 Other muscle spasm; F17.210 Nicotine dependence, cigarettes, uncomplicated; X50.0XXA Overexertion from strenuous movement or load, initial encounter
CPT/HCPCS: 72083; 73562; 81003; 96372; 99212; 99214; G0463

== ENCOUNTER 2023-05-11 11:30 | Emergency (ER) | payer MEDICARE, MEDICAID, SELFPAY ==
[2023-05-11 11:36] VITALS: BP 114/76; PULSE 79; O2SAT 96
[2023-05-11 11:37] VITALS: BP 114/76; PULSE 80; RESP 18; TEMP 36.6; O2SAT 96; BMI 30.2
--- NOTE | 2023-05-11 12:00 | PC.NURSE ---
Dr. Pruitt at bedside
--- NOTE | 2023-05-11 12:07 | ED_ITS ---
Discharge Plan Disposition Patient Disposition: Home, Self-Care Prescriptions Prescriptions: No Action fluoxetine [Prozac] 40 mg capsule 80 mg PO DAILY Qty: 60 2RF hydroxyzine pamoate 50 mg capsule 50 mg PO TID PRN (Reason: anxiety) Qty: 90 1RF Caplyta 42 mg capsule 42 mg PO DAILY Qty: 30 2RF ondansetron 4 mg Tablet,Disintegrating 4 mg PO Q8H PRN (Reason: Nausea) Qty: 12 0RF methocarbamol 500 mg tablet 500 mg PO TID PRN (Reason: muscle spasm) Qty: 15 0RF pantoprazole [Protonix] 40 mg tablet,delayed release (DR/EC) 40 mg PO DAILY 28 Days Qty: 28 0RF Referrals Follow up/Referrals: Abel Rueda MD [Primary Care Provider] - See instructions Activity Restrictions/Add. Instructions Additional Instructions/Restrictions: Your symptoms are consistent with viral pharyngitis. Strep test was negative no antibiotics are indicated. As discussed your son-in-law certainly has the same upper respiratory viral infection as well. Treatment is supportive meaning you treat cough with cough medicine and pain with ibuprofen or Tylenol etc. You were given a dose of steroids which are long-acting will not need anymore. Return with any significant worsening of her symptoms. Clinical Impressions Clinical Impression: Pharyngitis Discharge ED Provider: Mehdi Pruitt General Adult HPI General Chief complaint: Upper Respiratory Infection Stated complaint: Sore throat Time Seen by Provider: 05/11/23 12:00 Mode of Arrival: Ambulatory Source of Information: Patient Limitations: No Limitations Description of Symptoms (Recalled from ER Triage Doc. by RN): Patient complaint of sore, dry throat for 1 week. History of Present Illness HPI narrative: Patient is a 37-year-old male presenting today with sore throat and some hoarse voice over the last week. No difficulty with swallowing. States he has had some pain to the anterior lateral aspects of bilateral neck which he describes a s his adenoids being swollen. He does have positive sick contacts at home his son has upper respiratory viral symptoms. This patient does not endorse any other past medical problems. He has only taken cough medicine at home without any significant improvement. Related Data Previous Rx's Medication Instructions Recorded pantoprazole 40 mg tablet,delayed 40 mg PO DAILY 4 weeks #28 tabs 06/20/23 release (Protonix) ondansetron 4 mg disintegrating 4 mg PO Q8H PRN Nausea #12 tabs 10/16/22 tablet methocarbamol 500 mg tablet 500 mg PO TID PRN muscle spasm #15 01/13/23 tabs fluoxetine 40 mg capsule (Prozac) 80 mg (2 x 40 mg) PO DAILY Mood 03/08/23 #60 caps hydroxyzine pamoate 50 mg capsule 50 mg PO TID PRN anxiety #90 caps 03/08/23 lumateperone 42 mg capsule 42 mg PO DAILY Mood #30 caps 03/08/23 (Caplyta) Allergies Allergy/AdvReac Type Severity Reaction Status Date / Time codeine Allergy Verified 03/14/23 10:48 iodine Allergy Verified 03/14/23 10:[facility] Dis[facility]: The information contained in this section may have been updated after the patient was seen, as this information can be updated by other users. Medical History Cerumen impaction Chronic ear infection Chronic sinusitis Excessive cerumen in both ear canals Major depressive disorder Posttraumatic stress disorder Surgical History No history of previous surgery Family History Other No significant family history Social History Smoking Status: Current every day smoker second hand exposure: No alcohol intake: never substance use type: former substance user and methamphetamine current occupational status: other Travel in the last 8 weeks: None housing: house number of children: 1 ROS Obtained: Yes All systems reviewed & no additional complaints except as documented Physical Exam General General appearance: alert and in no apparent distress ENT ENT exam: Present normal exam, normal oropharynx, mucous membranes moist, mucous membranes dry and other (Soft tissues in the palate are normal uvula is midline no significant soft tissue masses no significant pain with extension of the neck) Respiratory Respiratory exam: Present normal lung sounds bilaterally and respiratory distress Cardiovascular Cardiovascular exam: Present regular rate and normal rhythm Neurological Exam Neurological exam: Present alert and oriented X3 Medical Decision Making [place] Inquiry Pt receiving controlled substance: No Vital Signs: 05/11/23 11:36 05/11/23 11:37 Temperature 97.9 F Temperature Source Oral Pulse Rate 79 Pulse Rate [Radial] 80 Respiratory Rate 18 Blood Pressure 114/76 Blood Pressure [Right Arm] 114/76 Blood Pressure Mean 88 Blood Pressure Mean [Right Arm] 88 Blood Pressure Source [Right Arm] Automatic Cuff Blood Pressure Position [Right Arm] Sitting 02 Sat by Pulse Oximetry 96 96 Oxygen Delivery Method Room Air Room Air Lab Data Lab results reviewed: Yes I reviewed the patient's lab results. Lab Results 05/11/23 12:14: Group A Strep Rapid Negative Orders (Tests/Meds): ED MEDICATIONS Discontinued Medications Generic Name Dose Route Start Last Admin Trade Name Shelly PRN Reason Stop Dose Admin Dexamethasone 10 mg 05/11/23 12:06 05/11/23 12:21 Dexamethasone 4mg Tablet PO 05/11/23 12:07 10 mg ONCE ONE Administration Ibuprofen 800 mg 05/11/23 12:06 05/11/23 12:21 Ibuprofen 400 Mg Tablet PO 05/11/23 12:07 800 mg ONCE ONE Administration ORDERS Category Date Time Status Strep Scrn Group A (Rapid) Stat Lab 05/11/23 12:14 Completed Strep Screen Confirmation Stat Micro 05/11/23 12:14 Received Medical Decision Narrative: Well-appearing 37-year-old male with pharyngitis. Soft tissues appear normal on my exam. His description of swollen adenoids he is actually pointing to some anterior lymphadenopathy. His tonsils and adenoids do not appear to be abnormal from my exam. He is tolerating secretions well do not suspect retropharyngeal abscess or peritonsillar abscess at the moment. Steroids and ibuprofen have been given will check for strep which will tar heat exchanger cleaner if positive. Reassessment 12:33 PM strep test negative no indication for antibiotics supportive care discussed patient discharged in stable condition. Critical Care Critical Care Time Critical Care Time: No
[2023-05-11] MEDS: IBUPROFEN 400 MG TABLET 800 MG PO (12:21)
[2023-05-11] MEDS: DEXAMETHASONE 4MG TABLET 10 MG PO (12:21)
[2023-05-11 12:25] LABS: Strep Scrn Group A (Rapid) Negative (Negative)
[2023-05-11 12:42] VITALS: BP 114/76; PULSE 80; RESP 15; TEMP 36.7
[2023-05-11 12:44] VITALS: BP 120/75; PULSE 80; RESP 16; TEMP 37; O2SAT 98
--- NOTE | 2023-05-15 10:01 | PC.NURSE ---
PT NOTIFIED OF ABX FILLED AT [facility]
== END 2023-05-11 12:43 | disposition home or self-care (01) ==
PROVIDERS: Emergency Provider Student in an Organized Health Care Education/Training Program; PCP Internal Medicine Adolescent Medicine
DX: J02.9 Acute pharyngitis, unspecified (principal); M54.2 Cervicalgia; F32.A Depression, unspecified; F43.10 Post-traumatic stress disorder, unspecified; F17.200 Nicotine dependence, unspecified, uncomplicated
CPT/HCPCS: 87430; 99283

== ENCOUNTER 2023-07-19 20:24 | Emergency (ER) | payer MEDICARE, MEDICAID, SELFPAY ==
[2023-07-19 20:25] VITALS: BP 112/88; PULSE 83; RESP 18; TEMP 36.6; O2SAT 96; BMI 37.7
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
--- NOTE | 2023-07-19 20:56 | CT_ITS ---
PROCEDURE INFORMATION: Exam: CTA Abdomen and Pelvis With Contrast Exam date and time: 07/19/2023 11:10 PM Age: 37 years old Clinical indication: Abdominal pain; Acute; Additional info: Family history of cancer, bright red blood per TECHNIQUE: Imaging protocol: Computed tomographic angiography of the abdomen and pelvis with contrast. Exam focused on the arteries. 3D rendering (Not supervised by radiologist): MIP and/or 3D reconstructed images were created by the technologist. Radiation optimization: All CT scans at this facility use at least one of these dose optimization techniques: automated exposure control; mA and/or kV adjustment per patient size (includes targeted exams where dose is matched to clinical indication); or iterative reconstruction. Contrast material: ISOVUE; Contrast volume: 100 ml; Contrast route: INTRAVENOUS (IV); COMPARISON: CR XR MULTIPLE SPINE 4-5V 01/13/2023 2:39 PM FINDINGS: Aorta: No aortic aneurysm. No aortic dissection. Celiac trunk and mesenteric arteries: No occlusion or significant stenosis. Renal arteries: No occlusion or significant stenosis. Right iliac arteries: No occlusion or significant stenosis. Left iliac arteries: No occlusion or significant stenosis. Liver: Fatty liver. Gallbladder and bile ducts: Unremarkable. No calcified stones. No ductal dilation. Pancreas: Unremarkable. No mass. No ductal dilation. Spleen: Unremarkable. No splenomegaly. Adrenal glands: Unremarkable. No mass. Kidneys and ureters: Unremarkable. No solid mass. No hydronephrosis. Stomach and bowel: Unremarkable. No obstruction. No mucosal thickening. Appendix: No evidence of appendicitis. Intraperitoneal space: Unremarkable. No free air. No significant fluid collection. Lymph nodes: Unremarkable. No enlarged lymph nodes. Urinary bladder: Unremarkable. No mass. Reproductive: Unremarkable as visualized. Bones/joints: No acute fracture. Soft tissues: Unremarkable. IMPRESSION: 1. Unremarkable CT of abdominopelvis 2. Hepatomegaly with fatty infiltration..
[2023-07-19] MEDS: KETOROLAC 30MG/ML VIAL 15 MG IV (21:14)
[2023-07-19] MEDS: METHYLPREDNISOLONE SOD SUCC 125MG VIAL 125 MG IV (21:14)
[2023-07-19] MEDS: diphenhydrAMINE 50MG/ML VIAL 50 MG IV (21:14)
[2023-07-19 21:17] LABS: Basophils # 0.1 K/mm3 (0-0.2); Basophils % 1.6 % (0.1-2.0); Eosinophils # 0.2 K/mm3 (0.0-0.4); Eosinophils % 2.5 % (0.1-12.0); Hematocrit 44.9 % (42.0-52.0); Hemoglobin 14.4 g/dL (14.1-18.0); Lymphocytes # 2.4 K/mm3 (0.7-4.5); Lymphocytes % 31.7 % (10-50); Mean Corpuscular HGB Conc 32.2 g/dL (31.8-35.4); Mean Corpuscular Hemoglobin 25.6 pg (27.0-31.2); Mean Corpuscular Volume 79.5 fl (80-94); Mean Platelet Volume 7.4 fl (7.4-10.4); Monocytes # 0.6 K/mm3 (0.1-1.0); Monocytes % 7.6 % (1.7-9.3); Neutrophils # 4.3 K/mm3 (1.8-7.8); Neutrophils % 56.6 % (37.0-80.0); Platelet Count 366 K/mm3 (142-424); Red Blood Count 5.65 M/mm3 (4.60-6.20); Red Cell Distribution Width 13.5 % (11.5-17.5); White Blood Count 7.6 K/mm3 (4.8-10.8)
[2023-07-19 21:25] LABS: Chloride 104 mmol/L (98-107); Sodium 139 mmol/L (136-145)
[2023-07-19 21:27] LABS: Blood Urea Nitrogen 20 mg/dl (9-20); Creatinine Clearance Estimated 145 mL/min (50-200); Estimated Glomerular Filt Rate 68 ml/min (>60); GFR (African American) 82 ML/MIN (>60); Lipase 133 U/L (23-300)
[2023-07-19 21:28] LABS: Alanine Aminotransferase 33 U/L (12-78); Albumin Level 4.2 g/dl (3.5-5.0); Albumin/Globulin Ratio 1.4 (1.1-1.8); Alkaline Phosphatase 64 U/L (38-126); Aspartate Amino Transferase 32 U/L (17-59); Bilirubin,Total 0.3 mg/dl (0.2-1.3); Calcium 9.3 mg/dl (8.4-10.2); Carbon Dioxide 28 mmol/L (22.0-30.0); Globulin 2.9 g/dL (1.3-3.2); Glucose 119 mg/dl (74-100); Total Protein,Serum 7.1 g/dl (6.3-8.2)
[2023-07-19 21:29] LABS: Lactic Acid 1.4 mmol/L (0.7-2.1)
--- NOTE | 2023-07-19 22:13 | PC.NURSE ---
Patient was updated that he will be waiting for 2 critical patients to have their scans. Patient understands and is okay waiting for his turn. Patient concerns addressed.
[2023-07-19 22:31] VITALS: BP 130/81; PULSE 77; RESP 17; O2SAT 96
--- NOTE | 2023-07-19 22:52 | PC.NURSE ---
Patient updated on wait time. He is still okay with the wait time and no needs at this time voiced
[2023-07-19] MEDS: 0.9 % SODIUM CHLORIDE 50 ML VIAL IV (23:16)
[2023-07-19] MEDS: SODIUM CHLORIDE 0.9% 10ML SYR (RAD ONLY) 10 ML IV (23:17)
[2023-07-19] MEDS: IOPAMIDOL-370 (76%);100ML BOTTLE 100 ML IV (23:17)
[2023-07-19 23:21] VITALS: BP 123/75; PULSE 73; RESP 17; O2SAT 96
--- NOTE | 2023-07-19 23:37 | PC.NURSE ---
Patient has been updated on wait time for ct again after calling out for something to drink. No concerns voiced otherwise
[2023-07-20 00:35] VITALS: BP 124/76; PULSE 75; RESP 18; O2SAT 96
[2023-07-20 01:11] LABS: Microscopic, Urine URINE MICROSCOPIC (MICROSCOPIC)
[2023-07-20 01:13] LABS: Appearance,Urine CLEAR (Clear); Bilirubin,Urine Negative (Negative); Blood, Urine Negative (Negative); Color,Urine YELLOW (Yellow); Glucose,Urine (UA) Negative (Negative); Ketones,Urine TRACE (Negative); Leukocyte Esterase,Urine Negative (Negative); Nitrate,Urine Negative (Negative); PH,Urine 5.5 (5.0-8.5); Protein,Urine Negative (Negative); Specific Gravity, Urine 1.015 (1.005-1.030)
--- NOTE | 2023-07-20 01:18 | PC.NURSE ---
pt provided stool sample kit, educated on return of sample. No questions a this time
[2023-07-20 01:23] LABS: Squamous Epithelial Cell,Urine Occasional #/hpf (0-5)
[2023-07-20 01:39] VITALS: BP 124/76; PULSE 75; RESP 18; TEMP 36.6; O2SAT 96
== END 2023-07-20 01:40 | disposition home or self-care (01) ==
PROVIDERS: Emergency Medicine; Emergency Provider Emergency Medicine; PCP Internal Medicine Adolescent Medicine
DX: K92.1 Melena (principal); R10.30 Lower abdominal pain, unspecified; F17.210 Nicotine dependence, cigarettes, uncomplicated; Z87.11 Personal history of peptic ulcer disease
CPT/HCPCS: 74174; 80053; 81001; 83605; 83690; 85025; 96374; 96375; 99284; Q9967

== ENCOUNTER 2023-07-20 14:23 | Outpatient (CLI) | payer MEDICARE, MEDICAID, SELFPAY ==
[2023-07-20 14:28] LABS: Adenovirus F 40/41, stool Not Detected (NotDetected); Astrovirus Not Detected (NotDetected); Campylobacter Not Detected (NotDetected); Clostridium Difficile A/B, PCR Not Detected (NotDetected); Cryptosporidium Not Detected (NotDetected); Cyclospora Cayetanesis Not Detected (NotDetected); Entamoeba histolytica Not Detected (NotDetected); Enteroaggregative E coli Not Detected (NotDetected); Enteropathogenic E coli Not Detected (NotDetected); Enterotoxigenic E coli Not Detected (NotDetected); Giardia lamblia Not Detected (NotDetected); Norovirus Not Detected (NotDetected); Plesimonas Shigalloides, PCR Not Detected (NotDetected); Rotavirus A Not Detected (NotDetected); Salmonella, PCR Not Detected (NotDetected); Sapovirus Not Detected (NotDetected); Shiga-like toxin E coli Not Detected (NotDetected); Shigella Enterovasive E coli Not Detected (NotDetected); Vibrio Cholerae Not Detected (NotDetected); Vibrio, PCR Not Detected (NotDetected); Yersinia Entercolitica, PCR Not Detected (NotDetected)
== END 2023-07-20 23:59 | disposition home or self-care (01) ==
LOC: LAB.DROPOF 14:25
PROVIDERS: PCP Internal Medicine Adolescent Medicine; Visit Provider Emergency Medicine
DX: K92.1 Melena; R19.7 Diarrhea, unspecified
CPT/HCPCS: 87506

== ENCOUNTER 2024-01-11 16:41 | Emergency (ER) | payer MEDICARE, MEDICAID, SELFPAY ==
[2024-01-11 16:44] VITALS: BP 166/94; PULSE 75; RESP 18; O2SAT 98; BMI 37.6
--- NOTE | 2024-01-11 16:54 | [facility].EDGENADL ---
Discharge Plan Disposition Patient Disposition: Home, Self-Care Prescriptions Prescriptions: No Action fluoxetine [Prozac] 40 mg capsule 80 mg PO DAILY Qty: 60 2RF Caplyta 42 mg capsule 42 mg PO DAILY Qty: 30 2RF hydroxyzine pamoate 50 mg capsule See Rx Instructions .ROUTE .COMPLEX Qty: 90 1RF Dose Instruction: TAKE ONE CAPSULE BY MOUTH 3 TIMES A DAY NEEDED FOR ANXIETY Rx Instructions: TAKE ONE CAPSULE BY MOUTH 3 TIMES A DAY NEEDED FOR ANXIETY ondansetron 4 mg Tablet,Disintegrating 4 mg PO Q8H PRN (Reason: Nausea) Qty: 12 0RF methocarbamol 500 mg tablet 500 mg PO TID PRN (Reason: muscle spasm) Qty: 15 0RF pantoprazole [Protonix] 40 mg tablet,delayed release (DR/EC) 40 mg PO DAILY 28 Days Qty: 28 0RF Referrals Follow up/Referrals: Abel Rueda MD [Primary Care Provider] - See instructions Activity Restrictions/Add. Instructions Additional Instructions/Restrictions: At this time it was felt you are safe to be discharged home. If new or worsening symptoms please do not hesitate to return the emergency department. If your swabs were positive from today I will call you of the results. The steroids I gave you for your laryngitis will help you over the next few days. Clinical Impressions Clinical Impression: Acute viral syndrome, Sore throat, Laryngitis Print Language Print Language: Pashto Discharge ED Provider: Shailesh Adkins General Adult HPI General Chief complaint: Upper Respiratory Infection Stated complaint: ELISE,tongue numb,congestion Time Seen by Provider: 01/11/24 16:46 History of Present Illness HPI narrative: Patient is a 38-year-old male with no pertinent past medical history presents emergency department for evaluation of multiple complaints. Over the last 6 or 7 days patient has had throat discomfort, bifrontal headache, diffuse myalgias, diarrhea. Diarrhea is nonbloody, he does not have vomiting. No abdominal pain reported, no chest pain reported. He has had a hoarse voice for the last few days. Due to persistent symptoms he presents here for continued evaluation. He has family members who are also sick. No other acute complaints at this time. Related Data Previous Rx's ?Medication ?Instructions ?Recorded pantoprazole 40 mg tablet,delayed 40 mg PO DAILY 4 weeks #28 tabs 06/20/23 release (Protonix) ondansetron 4 mg disintegrating 4 mg PO Q8H PRN Nausea #12 tabs 10/16/22 tablet methocarbamol 500 mg tablet 500 mg PO TID PRN muscle spasm #15 01/13/23 tabs fluoxetine 40 mg capsule (Prozac) 80 mg (2 x 40 mg) PO DAILY Mood 10/15/23 #60 caps lumateperone 42 mg capsule 42 mg PO DAILY Mood #30 caps 10/15/23 (Caplyta) hydroxyzine pamoate 50 mg capsule See Rx Instructions .Route 12/03/23 .COMPLEX #90 caps Allergies Allergy/AdvReac Type Severity Reaction Status Date / Time codeine Allergy Verified 10/15/23 13:50 iodine Allergy Verified 10/15/23 13:50 PFS PFS Disclaimer: The information contained in this section may have been updated after the patient was seen, as this information can be updated by other users. Medical History Cerumen impaction Chronic ear infection Chronic sinusitis Excessive cerumen in both ear canals Major depressive disorder Posttraumatic stress disorder Surgical History No history of previous surgery Family History Other No significant family history Social History Smoking Status: Unknown if ever smoked second hand exposure: No alcohol intake: never substance use type: former substance user and methamphetamine current occupational status: other housing: house number of children: 1 Other Medical History Have you received the Flu Vaccine for this season: No Have you received the Pneumonia Vaccine: No ROS Obtained: Yes Systems reviewed as appropriate & no additional complaints except as documented Physical Exam General General appearance: alert, in no apparent distress and other (Hoarse phonation.) Head Head exam: atraumatic and normocephalic Eye Eye exam: Present PERRL and EOMI ENT ENT exam: Present mucous membranes moist; Absent normal oropharynx (Erythematous posterior oropharynx without exudate, uvula midline, no significantly enlarged tonsils) Neck Neck exam: Present normal inspection Chest Chest inspection: Present normal inspection and symmetric chest wall rise Respiratory Respiratory exam: Present normal lung sounds bilaterally; Absent respiratory distress, wheezes or accessory muscle use Cardiovascular Cardiovascular exam: Present regular rate and normal rhythm Abdominal Exam Abdominal exam: Present soft Extremities Exam Extremities exam: Present normal inspection Neurological Exam Neurological exam: Present alert and CN II-XII intact Psychiatric Psychiatric exam: Present normal affect Skin Skin exam: Present warm and dry Medical Decision Making Medical Records Screening: Per USPSTF and CDC recommendations, given the prevalence of disease in our region, it is our hospital?s policy to screen for HIV and viral Hepatitis for all patients aged 18 and over and those with ongoing risk factors. [facility] Inquiry Pt receiving controlled substance: No Vital Signs: 01/11/24 16:44 01/11/24 17:00 Pulse Rate 74 Pulse Rate [Radial] 75 Respiratory Rate 18 Blood Pressure 146/80 H Blood Pressure [Right Arm] 166/94 H Blood Pressure Mean [Right Arm] 118 Blood Pressure Source [Right Arm] Automatic Cuff Blood Pressure Position [Right Arm] Sitting 02 Sat by Pulse Oximetry 98 95 Oxygen Delivery Method Room Air Room Air Orders (Tests/Meds): ED MEDICATIONS Discontinued Medications Generic Name Dose Route Start Last Admin Trade Name Shelly PRN Reason Stop Dose Admin Acetaminophen 1,000 mg 01/11/24 16:54 01/11/24 17:07 Acetaminophen 500mg Tab PO 01/11/24 16:55 1,000 mg ONCE ONE Administration Dexamethasone 10 mg 01/11/24 16:54 01/11/24 17:08 Dexamethasone 4mg Tablet PO 01/11/24 16:55 10 mg ONCE ONE Administration Ibuprofen 600 mg 01/11/24 16:54 01/11/24 17:07 Ibuprofen 600 Mg Tablet PO 01/11/24 16:55 600 mg ONCE ONE Administration ORDERS Category Date Time Status HIV (1&2) Antibody Rapid Stat Lab 01/11/24 16:55 Ordered Hep C Ab with Reflex to RNA Stat Lab 01/11/24 16:55 Ordered Rapid PCR Covid and Flu A/B Stat Lab 01/11/24 16:55 Received Strep Scrn Group A (Rapid) Stat Lab 01/11/24 16:55 Received Medical Decision Narrative: In summary patient is a 38-year-old male past medical history described above who presents emergency department for evaluation of sore throat, bitemporal headache, myalgias, diarrhea in the setting of sick contacts. Patient is hemodynamically stable nontoxic-appearing upon arrival, afebrile. History is strongly consistent with viral syndrome, differential includes COVID, influenza, among others. He may also have strep pharyngitis for which strep swab will be obtained. Clinically he has laryngitis with a hoarse voice without stridor which will be treated with dexamethasone. Workup with labs and imaging was considered however he is clear to auscultation all lung cole and has normal hemodynamics with a nonfocal neurologic exam will be deferred. Initial inventions include Tylenol, ibuprofen, Decadron. Patient was discharged in stable condition pending test results which will be reviewed by me in the future. Critical Care Critical Care Time Critical Care Time: No
[2024-01-11 16:59] LABS: Coronavirus 19, PCR Not Detected (NotDetected); Influenza A, PCR Not Detected (NotDetected); Influenza B, PCR Not Detected (NotDetected)
[2024-01-11 17:00] VITALS: BP 146/80; PULSE 74; O2SAT 95
[2024-01-11] MEDS: ACETAMINOPHEN 500MG TAB 1000 MG PO (17:07)
[2024-01-11] MEDS: IBUPROFEN 600 MG TABLET PO (17:07)
[2024-01-11] MEDS: DEXAMETHASONE 4MG TABLET 10 MG PO (17:08)
[2024-01-11 17:25] VITALS: BP 146/80; PULSE 74; RESP 18; TEMP 36.9; O2SAT 95
[2024-01-11 17:40] LABS: Strep Scrn Group A (Rapid) Negative (Negative)
== END 2024-01-11 17:26 | disposition home or self-care (01) ==
PROVIDERS: Emergency Provider Emergency Medicine; PCP Internal Medicine Adolescent Medicine
DX: J02.9 Acute pharyngitis, unspecified (principal); J04.0 Acute laryngitis; B34.9 Viral infection, unspecified; R51.9 Headache, unspecified; M79.10 Myalgia, unspecified site; R19.7 Diarrhea, unspecified; R09.81 Nasal congestion
CPT/HCPCS: 87430; 87636; 99283; J8540

== ENCOUNTER 2024-12-14 11:00 | Outpatient (CLI) | payer MEDICARE, SELFPAY ==
[2024-12-14 20:20] LABS: Coronavirus 19, PCR Not Detected (NotDetected); Influenza B, PCR Not Detected (NotDetected)
[2024-12-15 07:33] LABS: Influenza A, PCR Detected (NotDetected)
== END 2024-12-14 23:59 ==
LOC: LAB.DROPOF 12-16 08:57
PROVIDERS: PCP Nurse Practitioner; Visit Provider Nurse Practitioner
DX: J06.9 Acute upper respiratory infection, unspecified (principal)
CPT/HCPCS: 87631